=== PATIENT | female | born 1960 | race African-American/Black ===

== ENCOUNTER 2021-12-08 09:43 | Inpatient (IN) | payer OTHER ==
[2021-12-08 09:58] LABS: Glucose,Whole Blood 166 mg/dL (75-99)
--- NOTE | 2021-12-08 10:35 | ED ---
General Adult HPI - General Chief complaint: Neuro Symptoms/Deficit Stated complaint: slurred speech Time Seen by Provider: 12/08/21 09:53 Source: patient, RN notes reviewed, old records reviewed Mode of arrival: ambulatory Limitations: no limitations - History of Present Illness Initial comments: Patient is a 61-year-old female with past medical history remarkable for multiple strokes, uterine cancer currently undergoing radiation therapy, hypertension who presents emergency department for further evaluation at this time. Patient's daughter states that this morning, patient seems somewhat more confused. She states that this is similar to prior strokes which is why she wanted her mother to be evaluated. Patient does have residual deficits from prior strokes, with residual dysarthria. This morning, patient apparently did not know the year the president was, had mild confusion with mildly worsening dysarthria and possible facial droop. She currently is back to her normal baseline, with family at bedside to confirm. Last known well was sometime yesterday afternoon. Patient denies any acute symptoms at this time include chest pain, abdominal pain, nausea, vomiting. She is blood sugar is within normal limits. No acute findings at this time. No trauma. No known blood thinners. - Related Data Home Medications Medication Instructions Recorded Confirmed Atorvastatin Calcium [Lipitor] 40 mg PO HS 11/08/21 12/08/21 Insulin Glargine [Lantus Vial] 17 units SQ HS 11/08/21 12/08/21 Losartan [Cozaar] 50 mg PO BID 11/08/21 12/08/21 Pantoprazole Sodium [Protonix] 40 mg PO DAILY 11/08/21 12/08/21 Megestrol [Megace] 800 mg PO DAILY 12/08/21 12/08/21 Metoprolol Succinate (ER) [Toprol 50 mg PO DAILY 12/08/21 12/08/21 Xl] hydroCHLOROthiazide [Hydrodiuril] 25 mg PO DAILY 12/08/21 12/08/21 Previous Rx's Medication Instructions Recorded Ferrous Sulfate [Iron (65 MG 325 mg PO DAILY #30 tab 11/09/21 Elemental)] Allergies Allergy/AdvReac Type Severity Reaction Status Date / Time No Known Allergies Allergy Verified 12/08/21 12:23 Review of Systems ROS Statement: Those systems with pertinent positive or pertinent negative responses have been documented in the HPI. Review of Systems: CONST: Denies fever EYES: Denies blurry vision ENT: Denies nasal congestion C/V: Denies Chest pain RESP: Denies shortness of breath GI: Denies abdominal pain : Denies dysuria SKIN: Denies rash. MSK: Denies joint pain. NEURO: Denies headache ROS Other: All systems not noted in ROS Statement are negative. Past Medical History Past Medical History: Cancer, Diabetes Mellitus, Hypertension Additional Past Medical History / Comment(s): PER PATIENT'S DTR- CVA AROUND 09/25 21 AND WENT TO [facility], SPEECH APPEARS SLIGHTLY SLURRED, uterine ca History of Any Multi-Drug Resistant Organisms: None Reported Past Surgical History: No Surgical Hx Reported Past Psychological History: No Psychological Hx Reported Smoking Status: Current every day smoker Past Alcohol Use History: None Reported Past Drug Use History: None Reported - Past Family History family Family Medical History: No Reported History General Exam - General Exam Comments Initial Comments: General: Appears in no acute distress. HEAD: Normal with no signs of head trauma. EYES: PERRLA, EOMI, conjunctiva normal, no discharge. ENT: Hearing grossly intact, normal oropharynx. RESPIRATORY: Clear breath sounds bilaterally. No wheezes, rales, or rhonchi. C/V: Regular rate and rhythm. S1 and S2 auscultated, no edema, peripheral pulses 2+ and intact throughout ABD: Abd is soft, nontender, nondistended EXT: Normal range of motion, no obvious deformity SKIN: No rashes or lesions observed on exposed skin. NEURO: Alert and oriented 4. Cranial nerves II through XII are intact. NIH is 0. Patient does have chronic dysarthria from prior strokes which is unchanged. This is verified by family who is at bedside. Confusion she expressed earlier seems to have resolved. Cerebellar function is intact as evident by normal finger to nose testing and [id number] testing. No acute neurological findings. Limitations: no limitations Course Vital Signs 12/08/21 12/08/21 12/08/21 09:46 10:13 11:38 Temperature 97.8 F Pulse Rate 62 62 85 Respiratory 18 18 18 Rate Blood Pressure 144/76 163/89 141/85 O2 Sat by Pulse 100 100 99 Oximetry Medical Decision Making - Medical Decision Making This on the patient's presentation and physical exam, patient was brought here for neurological evaluation over concern for possible stroke. Symptoms she had this morning, including confusion was identical to prior strokes per family. The symptoms seem to have resolved. NIH is currently 0 for new symptoms. Has chronic dysarthria from prior strokes which is unchanged per family. Last known well was yesterday afternoon. I did discuss with the patient's family that we w ill obtain neurology exam, including CT imaging of the brain. Cannot rule out other etiology at this time and therefore we'll also obtain urine studies as well as basic labs. [id number] glucose was within normal limits. There were in agreement this plan. Vital signs are within normal limits and stable. EKG showed no signs of acute ischemia. Laboratory studies remarkable for a mild chronic anemia with a hemoglobin was 7.2. Urinalysis is unremarkable. The remainder the labs are unremarkable. This includes a normal glucose. Chest x- ray showed cardiomegaly. Possible central venous congestion but no symptoms. CT brain showed no acute findings. There are chronic findings. CT angiogram revealed diffuse narrowing of multiple arteries in the brain. No acute findings on imaging except for a small possible 3.5 mm saccular aneurysm projecting inferiorly and posteriorly from the supraclinoid right ICA. Radiology recommends a referral for MRI surveillance. No large vessel occlusion seen.. I discussed the case with on-call neurology, Dr. Brennan, who is in agreement with the patient remaining here. Also discussed the case with Dr. Ruth of neuro intervention he states that the patient can follow-up with him outpatient. Patient will be given an aspirin. I spoke with the cold roller doctor, Dr. Narvaez who accepted the patient.I discussed with the patient's family as well as with the patient and they were in agreement with this plan. - Lab Data Result diagrams: 12/08/21 10:36 12/08/21 10:36 Lab Results 12/08/21 12/08/21 12/08/21 Range/Units 09:57 10:36 10:36 WBC 6.0 (3.8-10.6) k/uL RBC 3.02 L (3.80-5.40) m/uL Hgb 7.2 L (11.4-16.0) gm/dL Hct 24.0 L (34.0-46.0) % MCV 79.5 L D (80.0-100.0) fL MCH 23.8 L (25.0-35.0) pg MCHC 30.0 L (31.0-37.0) g/dL RDW 22.2 H (11.5-15.5) % Plt Count 293 (150-450) k/uL MPV 7.1 Neutrophils % 75 % Lymphocytes % 17 % Monocytes % 3 % Eosinophils % 4 % Basophils % 0 % Neutrophils # 4.5 (1.3-7.7) k/uL Lymphocytes # 1.0 (1.0-4.8) k/uL Monocytes # 0.2 (0-1.0) k/uL Eosinophils # 0.2 (0-0.7) k/uL Basophils # 0.0 (0-0.2) k/uL Hypochromasia Marked Poikilocytosis Moderate Anisocytosis Moderate Microcytosis Moderate PT 9.7 (9.0-12.0) sec INR 0.9 (<1.2) APTT 21.8 L (22.0-30.0) sec Sodium (137-145) mmol/L Potassium (3.5-5.1) mmol/L Chloride (98-107) mmol/L Carbon Dioxide (22-30) mmol/L Anion Gap mmol/L BUN (7-17) mg/dL Creatinine (0.52-1.04) mg/dL Est GFR (CKD-EPI)AfAm (>60 ml/min/1.73 sqM) Est GFR (CKD-EPI)NonAf (>60 ml/min/1.73 sqM) Glucose (74-99) mg/dL POC Glucose (mg/dL) 166 H (75-99) mg/dL POC Glu Clam Grader ID Erik Gibbons Calcium (8.4-10.2) mg/dL Total Bilirubin (0.2-1.3) mg/dL AST (14-36) U/L ALT (4-34) U/L Alkaline Phosphatase (38-126) U/L Total Protein (6.3-8.2) g/dL Albumin (3.5-5.0) g/dL Urine Color Urine Appearance (Clear) Urine pH (5.0-8.0) Ur Specific [place] (1.001-1.035) Urine Protein (Negative) Urine Glucose (UA) (Negative) Urine Ketones (Negative) Urine Blood (Negative) Urine Nitrite (Negative) Urine Bilirubin (Negative) Urine Urobilinogen (<2.0) mg/dL Ur Leukocyte Esterase (Negative) Urine RBC (0-5) /hpf Urine WBC (0-5) /hpf Ur Squamous Epith Cells (0-4) /hpf Urine Mucus (None) /hpf 12/08/21 12/08/21 Range/Units 10:36 10:36 WBC (3.8-10.6) k/uL RBC (3.80-5.40) m/uL Hgb (11.4-16.0) gm/dL Hct (34.0-46.0) % MCV (80.0-100.0) fL MCH (25.0-35.0) pg MCHC (31.0-37.0) g/dL RDW (11.5-15.5) % Plt Count (150-450) k/uL MPV Neutrophils % % Lymphocytes % % Monocytes % % Eosinophils % % Basophils % % Neutrophils # (1.3-7.7) k/uL Lymphocytes # (1.0-4.8) k/uL Monocytes # (0-1.0) k/uL Eosinophils # (0-0.7) k/uL Basophils # (0-0.2) k/uL Hypochromasia Poikilocytosis Anisocytosis Microcytosis PT (9.0-12.0) sec INR (<1.2) APTT (22.0-30.0) sec Sodium 139 (137-145) mmol/L Potassium 4.2 (3.5-5.1) mmol/L Chloride 106 (98-107) mmol/L Carbon Dioxide 24 (22-30) mmol/L Anion Gap 9 mmol/L BUN 16 (7-17) mg/dL Creatinine 1.03 (0.52-1.04) mg/dL Est GFR (CKD-EPI)AfAm 69 (>60 ml/min/1.73 sqM) Est GFR (CKD-EPI)NonAf 60 (>60 ml/min/1.73 sqM) Glucose 145 H (74-99) mg/dL POC Glucose (mg/dL) (75-99) mg/dL POC Glu Clam Grader ID Calcium 8.9 (8.4-10.2) mg/dL Total Bilirubin 0.3 (0.2-1.3) mg/dL AST 24 (14-36) U/L ALT 14 (4-34) U/L Alkaline Phosphatase 76 (38-126) U/L Total Protein 7.0 (6.3-8.2) g/dL Albumin 3.9 (3.5-5.0) g/dL Urine Color Yellow Urine Appearance Clear (Clear) Urine pH 6.5 (5.0-8.0) Ur Specific [place] 1.019 (1.001-1.035) Urine Protein Trace H (Negative) Urine Glucose (UA) Negative (Negative) Urine Ketones Negative (Negative) Urine Blood Trace H (Negative) Urine Nitrite Negative (Negative) Urine Bilirubin Negative (Negative) Urine Urobilinogen <2.0 (<2.0) mg/dL Ur Leukocyte Esterase Negative (Negative) Urine RBC 7 H (0-5) /hpf Urine WBC 2 (0-5) /hpf Ur Squamous Epith Cells <1 (0-4) /hpf Urine Mucus Rare H (None) /hpf - EKG Data -: EKG Interpreted by Me EKG Comments: 12-lead Electrocardiogram Interpretation Note EKG was reviewed and interpreted by myself. 12-lead ECG performed at 0956 is interpreted by me as revealing normal sinus rhythm at a rate of 66 beats per minute. [place] is normal. ID interval is 160 ms, QRS duration is 84 ms, QTc is 415 ms.. There were no ST or T wave abnormalities to suggest myocardial ischemia or injury. R wave progression across the precordium was satisfactory. By my interpretation this EKG is non-diagnostic for acute ischemia. Critical Care Time Critical Care Time: Yes Total Critical Care Time: 35 Critical Care Time: Upon my evaluation, this patient had a high probability of imminent or life- threatening deterioration due to TIA, which required my direct attention, intervention, and personal management. I have personally provided 35 minutes of critical care time exclusive of time spent on separately billable procedures. Time includes review of laboratory data, radiology results, discussion with consultants, and monitoring for potential decompensation. Interventions were performed as documented in my note. Disposition Clinical Impression: TIA (transient ischemic attack) Disposition: ADMITTED IP TO THIS HOSP Condition: Stable Time of Disposition: 12:25
--- NOTE | 2021-12-08 10:56 | XR ---
EXAMINATION TYPE: XR chest 2V DATE OF EXAM: 12/08/2021 COMPARISON: NONE TECHNIQUE: PA and lateral views submitted. HISTORY: Altered mental status FINDINGS: The lungs are clear and there is no pneumothorax, pleural effusion, or focal pneumonia. The heart i s enlarged. Hypertrophic degenerative changes in spine. Subsegmental changes left lung base. Arthropa thy of the shoulders. Hypertrophic change of the spine. Coarsened interstitium. IMPRESSION: 1. Severe cardiomegaly correlate for mild central venous congestion or interstitial pneumonitis.
[2021-12-08 10:59] LABS: Anisocytosis Moderate; Basophils % (A) 0 %; Eosinophils # (A) 0.2 k/uL (0-0.7); Eosinophils % (A) 4 %; HGB 7.2 gm/dL (11.4-16.0); Hypochromasia Marked; Lymphocytes % (A) 17 %; MCH 23.8 pg (25.0-35.0); Mean Platelet Volume 7.1; Microcytosis Moderate; Monocytes # (A) 0.2 k/uL (0-1.0); Monocytes % (A) 3 %; Neutrophils # (A) 4.5 k/uL (1.3-7.7); Neutrophils % (A) 75 %; Platelet Count 293 k/uL (150-450); Poikilocytosis Moderate; RBC 3.02 m/uL (3.80-5.40); RDW 22.2 % (11.5-15.5)
[2021-12-08 11:00] LABS: MCV 79.5 fL (80.0-100.0)
[2021-12-08 11:08] LABS: Appearance,Urine Clear (Clear); Bilirubin,Urine Negative (Negative); Blood,Urine Trace (Negative); Color,Urine Yellow; Glucose,Urine (UA) Negative (Negative); Ketones,Urine Negative (Negative); Leukocyte Esterase,Urine Negative (Negative); Mucus,Urine Rare /hpf; Nitrite,Urine Negative (Negative); PH, Urine 6.5 (5.0-8.0); Protein,Urine Trace (Negative); RBC,Urine 7 /hpf (0-5); Specific Gravity,Urine 1.019 (1.001-1.035); Squamous Epithelial Cell,Urine <1 /hpf (0-4); Urobilinogen,Urine <2.0 mg/dL (<2.0); WBC,Urine 2 /hpf (0-5)
[2021-12-08 11:12] LABS: Albumin 3.9 g/dL (3.5-5.0); Calcium 8.9 mg/dL (8.4-10.2); Potassium 4.2 mmol/L (3.5-5.1); Total Bilirubin 0.3 mg/dL (0.2-1.3)
[2021-12-08 11:13] LABS: INR 0.9 (<1.2); Prothrombin Time 9.7 sec (9.0-12.0)
[2021-12-08] MEDS ORDERED: SODIUM CHLORIDE 0.9% 500 ML 500 ML IV STA (11:14)
[2021-12-08 11:23] LABS: Partial Thromboplastin Time 21.8 sec (22.0-30.0)
--- NOTE | 2021-12-08 11:39 | CT ---
EXAMINATION TYPE: CT brain wo con for TPA DATE OF EXAM: 12/08/2021 HISTORY: Neuro deficit, acute stroke suspected CT DLP: 1192.6 mGycm. Automated Exposure Control for Dose Reduction was Utilized. TECHNIQUE: CT scan of the head is performed without contrast. COMPARISON: CT brain December 28, 2013. FINDINGS: There is no acute intracranial hemorrhage or midline shift identified. Ventricles and sul ci within normal limits in size for patient's age. Septum pellucidum vergae redemonstrated. Old infar ct left frontal lobe with ex vacuo dilatation of the left ventricle axial image 32 now present. Vague low area of low-attenuation right parietal lobe axial image 34 with additional areas of low signal t hroughout the deep and periventricular white matter are noted favoring products of chronic small vess el ischemic change. Calcification along the anterior interhemispheric fissure is identified. The glob es are intact and the visualized sinuses are clear. IMPRESSION: No acute intracranial hemorrhage or midline shift. There is old left frontal lobe infarc t. There is mild to moderate nonspecific white matter changes favored product of chronic small vessel ischemic change. Areas of subacute infarct not entirely excluded.
--- NOTE | 2021-12-08 12:14 | CT ---
EXAMINATION TYPE: CT angio head neck DATE OF EXAM: 12/08/2021 COMPARISON: CT brain 12/08/2021 and 12/28/2013 HISTORY: 61-year-old female weakness, Neuro deficit, acute stroke suspected TECHNIQUE: Contiguous axial scanning of the head and neck performed with IV Contrast, patient injecte d with 65 ml mL of Isovue 370. Coronal and sagittal MIP reconstructions performed. 3-D reconstruction s generated on a dedicated independent workstation. CT DLP: 671 mGycm Automated exposure control for dose reduction was used. FINDINGS: NECK: Conventional arch vessel branching anatomy. Dominant right vertebral artery. Both vertebral arteries are otherwise patent throughout their course . The right common and right internal carotid arteries are widely patent. Left common and left internal carotid arteries are widely patent. HEAD: V4 segment left vertebral artery becomes even more hypoplastic after the PICA takeoff. There is a foc al severe narrowing of the distal portion of left vertebral artery. Basilar artery is patent. Moderate atherosclerotic narrowing at the junction of the P1 and P2 segment posterior cerebral artery . Atherosclerotic changes of the bilateral carotid siphons. Mild to moderate focal atherosclerotic narr owing along the supraclinoid left ICA, thin cut axial image 125. There appears to be a 3.5 mm saccular aneurysm projecting inferiorly and posteriorly from the supracl inoid right ICA, axial image 129 and 130. Hypoplastic A1 segment right anterior cerebral artery. Remainder of the anterior circulation is patent but with mild atherosclerotic irregularity. Dense anterior dural calcifications along the falx. Old deep white matter infarct anterior left front al lobe with secondary ex vacuo enlargement left lateral ventricle. IMPRESSION: NECK: 1. WIDELY PATENT VERTEBRAL AND CAROTID ARTERIES IN THE NECK. 2. INCIDENTAL DOMINANT RIGHT VERTEBRAL ARTERY. HEAD: 3. THE NONDOMINANT LEFT VERTEBRAL ARTERY BECOMES EVEN MORE HYPOPLASTIC AFTER THE PICA TAKEOFF. THERE IS ALSO A FOCAL SEVERE NARROWING OF THE DISTAL PORTION OF THE HYPOPLASTIC LEFT VERTEBRAL ARTERY. 4. MILD ATHEROSCLEROTIC CHANGES AT THE BILATERAL CAROTID SIPHONS. THERE IS [id number] FOCAL REESE ROWING ALONG THE SUPRACLINOID LEFT ICA. 5. MODERATE ATHEROSCLEROTIC NARROWING AT THE P1 AND P2 JUNCTION OF THE LEFT POSTERIOR CEREBRAL ARTERY . 6. SUSPECTED 3.5 MM SACCULAR ANEURYSM PROJECTING INFERIORLY AND POSTERIORLY FROM THE SUPRACLINOID RIG HT ICA. THE PATIENT CAN BE REFERRED FOR MRA SURVEILLANCE. 7. MILD ATHEROSCLEROTIC IRREGULARITY THROUGHOUT THE DISTAL BRANCHES OF THE ANTERIOR CIRCULATION. NO L ARGE VESSEL INTRACRANIAL ARTERIAL OCCLUSION SEEN.
[2021-12-08] MEDS ORDERED: ASPIRIN 325 MG TAB PO STA (12:36)
--- NOTE | 2021-12-08 17:23 | P.HPIM ---
History of Present Illness H&P Date: 12/08/21 Chief Complaint: Dysarthria Patient is a 61-year-old -[place] female with past medical history remarkable for multiple strokes with residual dysarthria, recently diagnosed uterine cancer currently undergoing radiation therapy, hypertension who presents emergency department for further evaluation at this time. Patient's daughter states that this morning, patient seems somewhat more confused. She states that this is similar to prior strokes which is why she wanted her mother to be evaluated. Patient does have residual deficits from prior strokes, with residual dysarthria. This morning, patient apparently did not know the year the president was, had mild confusion with mildly worsening dysarthria and possible facial droop. She currently is back to her normal baseline, with family at bedside to confirm. Last known well was sometime yesterday afternoon. Patient denies any acute symptoms at this time include chest pain, shortness of breath, cough, fever abdominal pain, nausea, vomiting. She is blood sugar is within normal limits. No recent travel or sick contacts. Review of Systems All 14 review of systems evaluated and all negative except for above. Past Medical History Past Medical History: Cancer, Diabetes Mellitus, Hypertension Additional Past Medical History / Comment(s): PER PATIENT'S DTR- CVA AROUND 09/2021 AND WENT TO [facility], SPEECH APPEARS SLIGHTLY SLURRED, uterine ca History of Any Multi-Drug Resistant Organisms: None Reported Past Surgical History: No Surgical Hx Reported Past Psychological History: No Psychological Hx Reported Smoking Status: Current every day smoker Past Alcohol Use History: None Reported Past Drug Use History: None Reported - Past Family History family Family Medical History: No Reported History Medications and Allergies Home Medications Medication Instructions Recorded Confirmed Type Atorvastatin Calcium [Lipitor] 40 mg PO HS 11/08/21 12/08/21 History Insulin Glargine [Lantus Vial] 17 units SQ HS 11/08/21 12/08/21 History Losartan [Cozaar] 50 mg PO BID 11/08/21 12/08/21 History Pantoprazole Sodium [Protonix] 40 mg PO DAILY 11/08/21 12/08/21 History Ferrous Sulfate [Iron (65 MG 325 mg PO DAILY #30 tab 11/09/21 12/08/21 Rx Elemental)] Megestrol [Megace] 800 mg PO DAILY 12/08/21 12/08/21 History Metoprolol Succinate (ER) [Toprol 50 mg PO DAILY 12/08/21 12/08/21 History Xl] hydroCHLOROthiazide [Hydrodiuril] 25 mg PO DAILY 12/08/21 12/08/21 History Allergies Allergy/AdvReac Type Severity Reaction Status Date / Time No Known Allergies Allergy Verified 12/08/21 12:23 Physical Exam Vitals: Vital Signs Temp Pulse Resp BP Pulse Ox 12/08/21 16:18 72 18 145/73 99 12/08/21 14:00 73 18 141/63 100 12/08/21 12:00 72 18 150/92 99 12/08/21 11:38 85 18 141/85 99 12/08/21 10:13 62 18 163/89 100 12/08/21 09:46 97.8 F 62 18 144/76 100 Intake and Output 12/08/21 12/08/21 12/08/21 06:59 14:59 22:59 Other: Weight 91.172 kg General: non toxic, no distress, appears at stated age. Obese Derm: warm, dry Head: atraumatic, normocephalic, symmetric Eyes: EOMI, no lid lag, anicteric sclera Mouth: no lip lesion, mucus membranes moist Cardiovascular: S1S2 reg, no murmur, positive posterior tibial pulse bilateral, Lungs: CTA bilateral, no rhonchi, no rales , no accessory muscle use Abdominal: soft, nontender to palpation, no guarding, no appreciable organomegaly Ext: no gross muscle atrophy, no edema, no contractures Neuro: Mild dysarthria. CN II-XI grossly intact, no focal neuro deficits Psych: Alert, oriented, appropriate affect Results CBC & Chem 7: 12/08/21 10:36 12/08/21 10:36 Labs: Abnormal Lab Results - Last 24 Hours (Table) 12/08/21 12/08/21 12/08/21 Range/Units 09:57 10:36 10:36 RBC 3.02 L (3.80-5.40) m/uL Hgb 7.2 L (11.4-16.0) gm/dL Hct 24.0 L (34.0-46.0) % MCV 79.5 L D (80.0-100.0) fL MCH 23.8 L (25.0-35.0) pg MCHC 30.0 L (31.0-37.0) g/dL RDW 22.2 H (11.5-15.5) % APTT 21.8 L (22.0-30.0) sec Glucose (74-99) mg/dL POC Glucose (mg/dL) 166 H (75-99) mg/dL Urine Protein (Negative) Urine Blood (Negative) Urine RBC (0-5) /hpf Urine Mucus (None) /hpf 12/08/21 12/08/21 Range/Units 10:36 10:36 RBC (3.80-5.40) m/uL Hgb (11.4-16.0) gm/dL Hct (34.0-46.0) % MCV (80.0-100.0) fL MCH (25.0-35.0) pg MCHC (31.0-37.0) g/dL RDW (11.5-15.5) % APTT (22.0-30.0) sec Glucose 145 H (74-99) mg/dL POC Glucose (mg/dL) (75-99) mg/dL Urine Protein Trace H (Negative) Urine Blood Trace H (Negative) Urine RBC 7 H (0-5) /hpf Urine Mucus Rare H (None) /hpf Assessment and Plan Assessment: Assessment and plan: #Transient dysarthria with confusion -Symptoms resolved prior to arrival to ER -Reviewed CT of the head and neck -Resume aspirin and high-dose statins -Neurology consulted -EKG normal sinus rhythm -Check 2-D echo #Uterine cancer -The patient's daughter stated that she was seen at [facility] and her mom was not a candidate for hysterectomy -She is currently receiving radiation therapy #Chronic anemia secondary to uterine cancer -The patient's daughter stated that the patient still have intermittent episodes of vaginal bleed. #Hypertension -Controlled -Resume losartan and metoprolol #Type 2 diabetes mellitus -Check A1c -Resume Levemir -Diabetic diet is light scale insulin #Obesity BMI 34 #DVT prophylaxis with subcutaneous Lovenox
--- NOTE | 2021-12-08 17:56 | P.CNNES ---
History of Present Illness Consult date: 12/08/21 Requesting physician: Arturo Alvarado Reason for Consult: TIA History of Present Illness: Patient is a 61-year-old female with history of hypertension, diabetes, tobacco use, previous strokes, who is currently getting radiation therapy for Uterine cancer, has received 09/20 and radiation so far. Patient came to the hospital today at 9:43 AM because she woke up this morning at 8 AM and was "talking funny". Patient states that she went to bed 8 PM last it and was in usual state of health. Patient denies any mental confusion, facial droopiness, although it was mentioned to the ED staff it appears. Patient had no trouble with walking. Patient denies any numbness tingling, focal weakness or any headache. Patient states her speech is still not back to baseline yet. Her last known well was 8 PM last night. Vital signs on arrival blood pressure 144/76, pulse is 62, temperature 97.8. Blood tests shows normal WBC hemoglobin 7.2, platelets 293. MCV is low 79.5. PT/PTT normal, Chem-[address] head showed no acute intracranial hemorrhage or midline shift. There is old left frontal lobe infarct. There is mild to moderate nonspecific white matter changes favored product of chronic small vessel ischemic change. Areas of subacute infarct not entirely excluded. CTA of the neck revealed widely patent vertebral and carotid arteries in the neck. Dominant right vertebral artery. CTA of the head showed no dominant left vertebral artery becomes even more hypoplastic after the pica takeoff. There is also focal severe narrowing of the distal portion of the hypoplastic left vertebral artery. Mild atherosclerotic changes at the bilateral carotid siphon. There is mild to moderate focal narrowing along the supraclinoid left ICA. Moderate atherosclerotic narrowing at the P1 and P2 junction of the left posterior cerebral artery. Suspected 3.5 mm saccular aneurysm projecting inferiorly and posteriorly from the supraclinoid right ICA. The patient can be referred for MRA surveillance. Mild atherosclerotic irregularity throughout the distal branches of the anterior circulation. No large vessel intracranial arterial occlusion seen. Patient was not a candidate for TPA, as her last known well was > 4.5 hours, and her NIH stroke scale was reported at 0. ED staff discussed case with Dr. Ruth regarding Cerebral aneurysm, who recommended no intervention at this time, follow-up in his office. EKG shows sinus rhythm. Patient takes insulin, losartan, Protonix, Lipitor 40 mg, iron, metoprolol 50 mg daily, HCTZ and Megace 800 mg daily. Patient has smoked 1/2 pack per day for 40 years, states quit 2 days ago. She has quit drinking alcohol 15 years ago. Denies any drug use. She has diabetes for 30 years. Also has hypertension and hyperlipidemia. Patient had a previous MRI of the brain on 12/31/2013, which was positive for acute ischemic stroke involving the left tam radiata and centrum semiovale on the left. I personally reviewed that MRI and agree with the findings. I spoke to patient's daughter on the phone, who provided additional history. Apparently patient had residual speech deficit after her stroke in 2013. Patient was on aspirin regimen after the stroke. Patient had a second stroke in August 2021 for which she was admitted to [facility]. Her symptoms consisted of facial droop, confusion, did not know where she was at. Patient was placed on aspirin and Plavix at that time. She had no residual deficits on the second stroke. Patient subsequently developing genitourinary bleeding which would not stop. She was admitted in [place] to [facility], from mid October to November and was diagnosed with uterine cancer stage II. Patient is supposed to have 16 external radiation and 3 internal radiation. So far she has received 3/16 external radiations. Patient's aspirin and Plavix were discontinued because of persistent bleed. Patient's daughter states that this morning her brother called her that mom was not talking right, and her speech was slurred and she was "out of it. She felt it was 1959 and Mr. Larios is the president. She could not name all her children. She was still able to walk. This prompted them to bring her to the hospital. Review of Systems Patient denies headache. All other 14 points of review of systems reviewed and pertinent positives mentioned in HPI. No fever or chills. Past Medical History Past Medical History: Cancer, Diabetes Mellitus, Hypertension Additional Past Medical History / Comment(s): PER PATIENT'S DTR- CVA AROUND 09/2021 AND WENT TO [facility], SPEECH APPEARS SLIGHTLY SLURRED, uterine ca History of Any Multi-Drug Resistant Organisms: None Reported Past Surgical History: No Surgical Hx Reported Past Psychological History: No Psychological Hx Reported Smoking Status: Current every day smoker Past Alcohol Use History: None Reported Past Drug Use History: None Reported - Past Family History family Family Medical History: No Reported History Medications and Allergies Home Medications Medication Instructions Recorded Confirmed Type Atorvastatin Calcium [Lipitor] 40 mg PO HS 11/08/21 12/08/21 History Insulin Glargine [Lantus Vial] 17 units SQ HS 11/08/21 12/08/21 History Losartan [Cozaar] 50 mg PO BID 11/08/21 12/08/21 History Pantoprazole Sodium [Protonix] 40 mg PO DAILY 11/08/21 12/08/21 History Ferrous Sulfate [Iron (65 MG 325 mg PO DAILY #30 tab 11/09/21 12/08/21 Rx Elemental)] Megestrol [Megace] 800 mg PO DAILY 12/08/21 12/08/21 History Metoprolol Succinate (ER) [Toprol 50 mg PO DAILY 12/08/21 12/08/21 History Xl] hydroCHLOROthiazide [Hydrodiuril] 25 mg PO DAILY 12/08/21 12/08/21 History Allergies Allergy/AdvReac Type Severity Reaction Status Date / Time No Known Allergies Allergy Verified 12/08/21 12:23 Physical Examination - Vital Signs Vital Signs: Vital Signs Temp Pulse Resp BP Pulse Ox 12/08/21 11:38 85 18 141/85 99 12/08/21 10:13 62 18 163/89 100 12/08/21 09:46 97.8 F 62 18 144/76 100 Intake and Output 12/07/21 12/08/21 12/08/21 22:59 06:59 14:59 Other: Weight 91.172 kg Patient is a middle aged female, in no acute distress. Patient is alert awake oriented to time place and person. Patient knows it is 12/07/2021 and that she is in hospital, does not know the current city or the state. She knows her date of . Speech is mildly dysarthric. Patient can repeat very well. She was able to name simple objects like "ear, pen, eyeglasses", but was having difficulty naming slightly more complex objects like knuckles and earlobe, the later she mentioned as "eardrum". Attention, concentration intact and fund of knowledge is limited. On cranial examination, pupils are equal, round and reacting to light, visual steve are full on confrontation, with no neglect. Her extraocular muscles are intact with no nystagmus. Face is symmetric, tongue protrudes to the midline. Palatal elevation and sensation normal, hearing is slightly decreased and shoulder shrug normal, facial sensation normal. Shoulder shrug normal. On muscle strength testing, there is no pronator drift and the strength is normal in arms and legs distally and proximally. Deep tendon reflexes are symmetric and plantars downgoing. Sensory to touch is equal with no neglect. Cerebellar function showed no ataxia for [id number], or [id number] testing. Tone and bulk of muscles normal. Gait deferred. On general examination, there is no carotid bruit or murmur, S1-S2 audible. Abdomen is soft nontender. No organomegaly, bowel sounds present. Chest is clear. Peripheral pulses are present. No edema. Results - Laboratory Findings CBC and BMP: 12/08/21 10:36 12/08/21 10:36 Abnormal Lab Findings: Abnormal Labs 12/08/21 12/08/21 12/08/21 09:57 10:36 10:36 RBC 3.02 L Hgb 7.2 L Hct 24.0 L MCV 79.5 L D MCH 23.8 L MCHC 30.0 L RDW 22.2 H APTT 21.8 L Glucose POC Glucose (mg/dL) 166 H Urine Protein Urine Blood Urine RBC Urine Mucus 12/08/21 12/08/21 10:36 10:36 RBC Hgb Hct MCV MCH MCHC RDW APTT Glucose 145 H POC Glucose (mg/dL) Urine Protein Trace H Urine Blood Trace H Urine RBC 7 H Urine Mucus Rare H Assessment and Plan Assessment: * Probable acute ischemic stroke manifesting with dysarthric speech and perhaps mild expressive aphasia. Patient has history of strokes in 2013, with some residual speech deficits. Also had a minor stroke in August 2021, with no further residual deficits. * Uterine cancer, undergoing radiation therapy * Asymptomatic saccular cerebral aneurysm, 3.5 mm projecting inferiorly and posteriorly from the supraclinoid right ICA. * Hypertension * Diabetes * Hyperlipidemia * Tobacco use * Previous history of strokes. Plan: * MRI brain evaluate for an acute stroke * 2-D echo with bubble study rule out PFO * Fasting a.m. lipid panel, hemoglobin A1c * Telemetry monitoring * Permissive hypertension, avoid hypotension. * Patient had developed bleed from DAP after her recent stroke in August 2021. Her aspirin and Plavix were discontinued at that time. Now with this recurrent stroke symptoms, we will place her on single antiplatelet agent Plavix 75 mg daily. As she has received aspirin 325 mg today, we will start Plavix from tomorrow. Discussed with patient's daughter, who agreed. * Regarding asymptomatic right ICA cerebral aneurysm, would recommend patient follow up with Dr. Ruth in his office as outpatient. * For DVT prophylaxis, recommend SCDs. * Recommend complete tobacco cessation. * Neurology will follow. Thank you for the consult.
[2021-12-08 18:43] LABS: Glucose,Whole Blood 125 mg/dL (75-99)
[2021-12-08] MEDS: INSULIN ASPART (NovoLOG) 100 UNIT/ML VIAL SQ SCH ×2 (18:45→21:10)
[2021-12-08 20:51] LABS: Glucose,Whole Blood 171 mg/dL (75-99)
[2021-12-08] MEDS: ATORVASTATIN 40 MG TAB PO SCH (21:09)
[2021-12-08] MEDS: LOSARTAN 50 MG TAB PO SCH (21:09)
[2021-12-08] MEDS: INSULIN DETEMIR (LEVEMIR) 100 UNIT/ML SYR SQ SCH (22:24)
[2021-12-09 07:30] LABS: Glucose,Whole Blood 112 mg/dL (75-99)
[2021-12-09] MEDS: METOPROLOL SUCCINATE (ER) 50 MG TAB.ER.24H PO SCH (08:13)
[2021-12-09] MEDS: PANTOPRAZOLE 40 MG TABLET PO SCH (08:13)
[2021-12-09] MEDS: ENOXAPARIN 40 MG/0.4 ML SYRINGE SQ SCH (08:13)
[2021-12-09] MEDS: LOSARTAN 50 MG TAB PO SCH ×2 (08:13→19:59)
[2021-12-09] MEDS: MEGESTROL 400 MG/10 ML CUP PO SCH (08:13)
[2021-12-09] MEDS ORDERED: FERROUS SULFATE 325 MG TAB PO SCH (09:00)
[2021-12-09] MEDS: INSULIN ASPART (NovoLOG) 100 UNIT/ML VIAL SQ SCH ×4 (09:58→19:58)
--- NOTE | 2021-12-09 11:02 | MR ---
EXAMINATION TYPE: MR brain wo/w con DATE OF EXAM: 12/09/2021 COMPARISON: CT brain from yesterday HISTORY: Stroke, TIA, Recent Dx of cancer getting radiation TECHNIQUE: Multiplanar, multisequence images of the brain and brainstem is performed without and with IV contras t, utilizing 9 mL intravenous Gadavist . FINDINGS: Diffusion-weighted images show approximately 8 small foci of increased signal on diffusion- weighted images which diminished signal on ADC mapping scattered throughout the deep right frontal an d parietal lobes. There are approximately 3 smaller subtle foci in the deep left parietal lobe. There is background mild ventricular and sulcal prominence. There are prominent areas of low attenuat ion in the deep and periventricular white matter. There is some left-sided encephalomalacia with subt le left-sided midline shift and extra-axial dilatation of the left ventricular system. Septum pelluci dum vergae redemonstrated. Midline structures demonstrate normal morphology. The craniocervical junction appears within normal limits. Post contrast images demonstrate no abnormal enhancement. The dural venous sinuses appear pa tent. The visualized sinuses are clear and the globes are intact. IMPRESSION: 1. Multiple small lacunar infarcts involving the right frontal and parietal levels with some involvem ent deep left parietal level. 2. Background mild diffuse cerebral atrophy and moderate to advanced chronic small vessel ischemic ch nima along with slightly more prominent old left-sided encephalomalacia.
[2021-12-09 12:06] LABS: Glucose,Whole Blood 122 mg/dL (75-99)
[2021-12-09 12:10] LABS: African American GFR (CKD) 69.7 (60.0-200.0); BUN/Creat Ratio 11.08 Ratio (12.00-20.00); Blood Urea Nitrogen 11.3 mg/dL (9.0-27.0); Calcium 8.8 mg/dL (8.7-10.3); Carbon Dioxide 19.1 mmol/L (20.0-27.5); Chloride 106 mmol/L (96-109); Chol/HDL Ratio 4.16 Ratio; Glucose 106 mg/dL (70-110); LDL Cholesterol,Calculated 61.4 mg/dL (0.0-131.0); Non-African American GFR(CKD) 60.2 (60.0-200.0); Potassium 4.2 mmol/L (3.5-5.5); Sodium 137 mmol/L (135-145)
[2021-12-09] MEDS: CLOPIDOGREL 75 MG TAB PO SCH (13:15)
[2021-12-09 14:04] LABS: Basophils # (A) 0.02 X 10*3/uL (0.00-0.10); Basophils % (A) 0.4 %; Eosinophils # (A) 0.28 X 10*3/uL (0.04-0.35); Eosinophils % (A) 5.4 %; HCT 23.9 % (37.2-46.3); HGB 6.9 g/dL (12.0-15.0); Immature Grans, Automated 0.6 %; Lymphocytes # (A) 0.59 X 10*3/uL (0.90-5.00); Lymphocytes % (A) 11.3 %; MCH 23.2 pg (27.0-32.0); MCHC 28.9 g/dL (32.0-37.0); MCV 80.5 fL (80.0-97.0); Mean Platelet Volume 10.8 fL (9.5-12.2); Monocytes # (A) 0.24 X 10*3/uL (0.20-1.00); Monocytes % (A) 4.6 %; NRBC Per 100 WBC 0 /100 WBCS (0.0-0.0); Neutrophils # (A) 4.07 X 10*3/uL (1.80-7.70); Neutrophils % (A) 77.7 %; Platelet Count 293 X 10*3/uL (140-440); RBC 2.97 X 10*6/uL (4.10-5.20); RDW 24.8 % (11.5-14.5); WBC 5.23 X 10*3/uL (4.50-10.00)
--- NOTE | 2021-12-09 14:17 | P.PN ---
Subjective Progress Note Date: 12/09/21 Chief Complaint: Dysarthria Patient is a 61-year-old -[place] female with past medical history remarkable for multiple strokes with residual dysarthria, recently diagnosed u terine cancer currently undergoing radiation therapy, hypertension who presents emergency department for further evaluation at this time. Patient's daughter states that this morning, patient seems somewhat more confused. She states that this is similar to prior strokes which is why she wanted her mother to be evaluated. Patient does have residual deficits from prior strokes, with residual dysarthria. This morning, patient apparently did not know the year the president was, had mild confusion with mildly worsening dysarthria and possible facial droop. She currently is back to her normal baseline, with family at bedside to confirm. Last known well was sometime yesterday afternoon. Patient denies any acute symptoms at this time include chest pain, shortness of breath, cough, fever abdominal pain, nausea, vomiting. She is blood sugar is within normal limits. No recent travel or sick contacts. Interval history: She was examined at bedside. She denies any chest pain or shortness of breath. MRI showed multiple lacunar infarcts. Discussed with neurology and patient was started on Plavix plus aspirin. Physical examination: General: non toxic, no distress, appears at stated age. Obese Derm: warm, dry Head: atraumatic, normocephalic, symmetric Eyes: EOMI, no lid lag, anicteric sclera Mouth: no lip lesion, mucus membranes moist Cardiovascular: S1S2 reg, no murmur, positive posterior tibial pulse bilateral, Lungs: CTA bilateral, no rhonchi, no rales , no accessory muscle use Abdominal: soft, nontender to palpation, no guarding, no appreciable organomegaly Ext: no gross muscle atrophy, no edema, no contractures Neuro: Mild dysarthria. CN II-XI grossly intact, no focal neuro deficits Psych: Alert, oriented, appropriate affect Assessment and plan: #Recurrent acute CVA multiple lacunar infarcts -Plavix added to aspirin -Symptoms resolved prior to arrival to ER -Reviewed CT of the head and neck -Resume high-dose statins -Neurology consulted -EKG normal sinus rhythm -Check 2-D echo--pending -Cardiology consulted for possible loop recorder #Uterine cancer -The patient's daughter stated that she was seen at [facility] and her mom was not a candidate for hysterectomy -She is currently receiving radiation therapy #Acute on Chronic microcytic iron deficienc anemia secondary to postmenopausal bleeding due to uterine cancer -The patient's daughter stated that the patient still have intermittent episodes of vaginal bleed. -Consult oncology service -Transfuse 1 unit of packed RBCs #Hypertension -Controlled -Resume losartan and metoprolol #Type 2 diabetes mellitus -A1c is 6.1 -Resume Levemir -Diabetic diet is light scale insulin #Obesity BMI 34 #DVT prophylaxis with subcutaneous Lovenox Objective - Vital Signs Vital signs: Vital Signs Temp 98.2 F 12/09/21 07:05 Pulse 69 12/09/21 07:05 Resp 18 12/09/21 08:25 BP 148/78 12/09/21 07:05 Pulse Ox 100 12/09/21 07:05 FiO2 Intake & Output 12/08/21 12/09/21 12/09/21 18:59 06:59 18:59 Weight 91.172 kg 91.172 kg Other: Voiding Method Toilet # Voids 1 - Labs CBC & Chem 7: 12/09/21 07:43 12/09/21 07:43 Labs: Abnormal Lab Results - Last 24 Hours (Table) 12/08/21 12/08/21 12/08/21 Range/Units 10:36 18:41 20:50 RBC (4.10-5.20) X 10*6/uL Hgb (12.0-15.0) g/dL Hct (37.2-46.3) % MCH (27.0-32.0) pg MCHC (32.0-37.0) g/dL RDW (11.5-14.5) % Plt Count Comment Lymphocytes # (0.90-5.00) X 10*3/uL Carbon Dioxide (20.0-27.5) mmol/L BUN/Creatinine Ratio (12.00-20.00) Ratio POC Glucose (mg/dL) 125 H 171 H (75-99) mg/dL Hemoglobin A1c 6.1 H (0.0-6.0) % HDL Cholesterol (40.00-60.00) mg/dL 12/09/21 12/09/21 12/09/21 Range/Units 07:29 07:43 07:43 RBC 2.97 L (4.10-5.20) X 10*6/uL Hgb 6.9 L* (12.0-15.0) g/dL Hct 23.9 L (37.2-46.3) % MCH 23.2 L (27.0-32.0) pg MCHC 28.9 L (32.0-37.0) g/dL RDW 24.8 H (11.5-14.5) % Plt Count Comment A Lymphocytes # 0.59 L (0.90-5.00) X 10*3/uL Carbon Dioxide 19.1 L (20.0-27.5) mmol/L BUN/Creatinine Ratio 11.08 L (12.00-20.00) Ratio POC Glucose (mg/dL) 112 H (75-99) mg/dL Hemoglobin A1c (0.0-6.0) % HDL Cholesterol 28.60 L (40.00-60.00) mg/dL 12/09/21 Range/Units 12:04 RBC (4.10-5.20) X 10*6/uL Hgb (12.0-15.0) g/dL Hct (37.2-46.3) % MCH (27.0-32.0) pg MCHC (32.0-37.0) g/dL RDW (11.5-14.5) % Plt Count Comment Lymphocytes # (0.90-5.00) X 10*3/uL Carbon Dioxide (20.0-27.5) mmol/L BUN/Creatinine Ratio (12.00-20.00) Ratio POC Glucose (mg/dL) 122 H (75-99) mg/dL Hemoglobin A1c (0.0-6.0) % HDL Cholesterol (40.00-60.00) mg/dL
--- NOTE | 2021-12-09 16:40 | P.CONS ---
History of Present Illness - Reason for Consult Consult date: 12/09/21 Endometrial Cancer Requesting physician: Tremaine Narvaez - Chief Complaint Post menopausal bleeding - History of Present Illness Mrs. Reis is a pleasant female presenting with confusion. She has a known history of CVA/TIAs and recent (11/09) diagnosis of endometrial FIGO2 Cancer. She has not been seen by our group and is apparently undergoing radiaiton therapy and receiving Megace (although anorexia dosing). She presents with increased confusion today. Review of Systems All systems: negative Constitutional: Reports as per HPI Past Medical History Past Medical History: Cancer, Diabetes Mellitus, Hypertension Additional Past Medical History / Comment(s): PER PATIENT'S DTR- CVA AROUND 09/2021 AND WENT TO [facility], SPEECH APPEARS SLIGHTLY SLURRED, uterine ca History of Any Multi-Drug Resistant Organisms: None Reported Past Surgical History: No Surgical Hx Reported Past Psychological History: No Psychological Hx Reported Smoking Status: Current every day smoker Past Alcohol Use History: None Reported Past Drug Use History: None Reported - Past Family History family Family Medical History: No Reported History Medications and Allergies Home Medications Medication Instructions Recorded Confirmed Type Atorvastatin Calcium [Lipitor] 40 mg PO HS 11/08/21 12/08/21 History Insulin Glargine [Lantus Vial] 17 units SQ HS 11/08/21 12/08/21 History Losartan [Cozaar] 50 mg PO BID 11/08/21 12/08/21 History Pantoprazole Sodium [Protonix] 40 mg PO DAILY 11/08/21 12/08/21 History Ferrous Sulfate [Iron (65 MG 325 mg PO DAILY #30 tab 11/09/21 12/08/21 Rx Elemental)] Megestrol [Megace] 800 mg PO DAILY 12/08/21 12/08/21 History Metoprolol Succinate (ER) [Toprol 50 mg PO DAILY 12/08/21 12/08/21 History Xl] hydroCHLOROthiazide [Hydrodiuril] 25 mg PO DAILY 12/08/21 12/08/21 History Allergies Allergy/AdvReac Type Severity Reaction Status Date / Time No Known Allergies Allergy Verified 12/08/21 12:23 Physical Exam Vitals: Vital Signs Temp Pulse Pulse Resp BP BP BP 12/09/21 14:57 98.9 F 70 15 129/85 12/09/21 08:25 18 12/09/21 07:05 98.2 F 69 17 148/78 12/09/21 02:33 97.1 F L 65 18 144/76 12/08/21 22:59 98.3 F 68 17 156/85 12/08/21 22:01 98.6 F 75 18 147/76 12/08/21 18:42 87 18 137/71 Pulse Ox 12/09/21 14:57 100 12/09/21 08:25 12/09/21 07:05 100 12/09/21 02:33 95 12/08/21 22:59 99 12/08/21 22:01 99 12/08/21 18:42 99 Intake and Output 12/09/21 12/09/21 12/09/21 06:59 14:59 22:59 Other: Voiding Method Toilet # Voids 1 1 - Constitutional General appearance: cooperative, no acute distress - EENT Eyes: EOMI, PERRLA ENT: NA/AT, normal oropharynx - Neck Neck: normal ROM - Respiratory Respiratory: bilateral: CTA - Cardiovascular Rhythm: regularly irregular - Gastrointestinal General gastrointestinal: soft, tenderness - Integumentary Integumentary: pale - Neurologic Neurologic: CNII-XII intact - Musculoskeletal Musculoskeletal: generalized weakness Results CBC & Chem 7: 12/09/21 07:43 12/09/21 07:43 Labs: Abnormal Lab Results - Last 24 Hours (Table) 12/08/21 12/08/21 12/08/21 Range/Units 10:36 18:41 20:50 RBC (4.10-5.20) X 10*6/uL Hgb (12.0-15.0) g/dL Hct (37.2-46.3) % MCH (27.0-32.0) pg MCHC (32.0-37.0) g/dL RDW (11.5-14.5) % Plt Count Comment Lymphocytes # (0.90-5.00) X 10*3/uL Carbon Dioxide (20.0-27.5) mmol/L BUN/Creatinine Ratio (12.00-20.00) Ratio POC Glucose (mg/dL) 125 H 171 H (75-99) mg/dL Hemoglobin A1c 6.1 H (0.0-6.0) % HDL Cholesterol (40.00-60.00) mg/dL Crossmatch 12/09/21 12/09/21 12/09/21 Range/Units 07:29 07:43 07:43 RBC 2.97 L (4.10-5.20) X 10*6/uL Hgb 6.9 L* (12.0-15.0) g/dL Hct 23.9 L (37.2-46.3) % MCH 23.2 L (27.0-32.0) pg MCHC 28.9 L (32.0-37.0) g/dL RDW 24.8 H (11.5-14.5) % Plt Count Comment A Lymphocytes # 0.59 L (0.90-5.00) X 10*3/uL Carbon Dioxide 19.1 L (20.0-27.5) mmol/L BUN/Creatinine Ratio 11.08 L (12.00-20.00) Ratio POC Glucose (mg/dL) 112 H (75-99) mg/dL Hemoglobin A1c (0.0-6.0) % HDL Cholesterol 28.60 L (40.00-60.00) mg/dL Crossmatch 12/09/21 12/09/21 Range/Units 12:04 14:32 RBC (4.10-5.20) X 10*6/uL Hgb (12.0-15.0) g/dL Hct (37.2-46.3) % MCH (27.0-32.0) pg MCHC (32.0-37.0) g/dL RDW (11.5-14.5) % Plt Count Comment Lymphocytes # (0.90-5.00) X 10*3/uL Carbon Dioxide (20.0-27.5) mmol/L BUN/Creatinine Ratio (12.00-20.00) Ratio POC Glucose (mg/dL) 122 H (75-99) mg/dL Hemoglobin A1c (0.0-6.0) % HDL Cholesterol (40.00-60.00) mg/dL Crossmatch See Detail Assessment and Plan Plan: Endometrial Cancer: -Currently receiving radiaiton therapy COnfusion: - Neurology following - MRI with scattered evidence of CVA Normocytic Hypochrommic anemia: - Vaginal Blood loss Iron defi - Transfuse less than 7 - Parental Iron x3 Dr. Barahona: I have completed the full history and physical and developed the above impression and plan, agree with dictation dictated as a ascribe
[2021-12-09 17:30] LABS: Glucose,Whole Blood 213 mg/dL (75-99)
--- NOTE | 2021-12-09 18:14 | CA ---
Transthoracic Echo Report Name: Velma Desai Age: 61 Gender: F : 1960 Exam Date: 12/08/2021 15:57 Exam Location: [place] [facility] Ht (in): 64 Wt (lb): 201 Ordering Physician: Peggy Brennan MD Attending/Referring Phys: Electromechanical Assembly Technician Amita Mosley RDCS Procedure CPT: Indications: CVA Cardiac Hx: Technical Quality: Good Contrast 1: Total Dose (mL): Contrast 2: Total Dose (mL): MEASUREMENTS (Male / Female) Normal Values 2D ECHO LV Diastolic Diameter PLAX 5.1 cm 4.2 - 5.9 / 3.9 - 5.3 cm LV Systolic Diameter PLAX 3.7 cm IVS Diastolic Thickness 1.4 cm 0.6 - 1.0 / 0.6 - 0.9 cm LVPW Diastolic Thickness 1.5 cm 0.6 - 1.0 / 0.6 - 0.9 cm LV Relative Wall Thickness 0.6 RV Internal Dim ED PLAX 3.3 cm LA Systolic Diameter LX 4.0 cm 3.0 - 4.0 / 2.7 - 3.8 cm LA Volume 57.4 cm??? 18 - 58 / 22 - 52 cm??? M-MODE Aortic Root Diameter MM 3.1 cm MV E Point Septal Separation 1.1 cm AV Cusp Separation MM 2.3 cm DOPPLER AV Peak Velocity 191.9 cm/s AV Peak Gradient 14.7 mmHg AV Mean Velocity 128.8 cm/s AV Mean Gradient 7.7 mmHg AV Velocity Time Integral 38.6 cm LVOT Peak Velocity 97.0 cm/s LVOT Peak Gradient 3.8 mmHg MV Area PHT 4.0 cm??? Mitral E Point Velocity 109.7 cm/s Mitral A Point Velocity 120.8 cm/s Mitral E to A Ratio 0.9 MV Deceleration Time 187.6 ms MV E' Velocity 5.2 cm/s Mitral E to MV E' Ratio 21.1 TR Peak Velocity 265.5 cm/s TR Peak Gradient 28.2 mmHg Right Ventricular Systolic Press 31.8 mmHg FINDINGS Left Ventricle Left ventricular ejection fraction is estimated at 55-60 %. Left ventricular cavity size normal. Moderate concentric left ventricular hypertrophy Right Ventricle Mild right ventricular dilatation. Right Atrium Normal right atrial size. Left Atrium Mildly increased left atrial diameter. Mildly increased left atrial volume. Mildly increased left atrial area. No evidence for an atrial septal defect. Negataive saline bubbles study Mitral Valve Mitral annular calcification. Mild mitral regurgitation. Aortic Valve Focal thickening of the aortic valve cusps. No aortic regurgitation. Tricuspid Valve Mild tricuspid regurgitation. Pulmonic Valve Trace pulmonic regurgitation. Pericardium Normal pericardium. Aorta Normal size aortic root and proximal ascending aorta. CONCLUSIONS Normal left ventricular ejection fraction 55-60% Moderate LVH RVSP 31 Negative bubble study Mild mitral regurgitation Mild tricuspid regurgitation No pericardial effusion. Previewed by: Dr. Dalton Solorio DO (Electronically Signed) Final Date: 09 December 2021 18:13
[2021-12-09 19:51] LABS: Glucose,Whole Blood 262 mg/dL (75-99)
[2021-12-09] MEDS: INSULIN DETEMIR (LEVEMIR) 100 UNIT/ML SYR SQ SCH (19:57)
[2021-12-09] MEDS: ATORVASTATIN 40 MG TAB PO SCH (19:58)
[2021-12-10 07:14] LABS: Glucose,Whole Blood 198 mg/dL (75-99)
[2021-12-10] MEDS: CLOPIDOGREL 75 MG TAB PO SCH (08:12)
[2021-12-10] MEDS: INSULIN ASPART (NovoLOG) 100 UNIT/ML VIAL SQ SCH ×4 (08:12→20:35)
[2021-12-10] MEDS: ENOXAPARIN 40 MG/0.4 ML SYRINGE SQ SCH (08:12)
[2021-12-10] MEDS: MEGESTROL 400 MG/10 ML CUP PO SCH (08:13)
[2021-12-10] MEDS: LOSARTAN 50 MG TAB PO SCH ×2 (08:13→20:35)
[2021-12-10] MEDS: METOPROLOL SUCCINATE (ER) 50 MG TAB.ER.24H PO SCH (08:13)
[2021-12-10] MEDS: PANTOPRAZOLE 40 MG TABLET PO SCH (08:13)
[2021-12-10] MEDS: SODIUM FERRIC GLUCONAT-SUCROSE 125 MG in SODIUM CHLORIDE 0.9% 100 ML IVPB SCH (08:13)
[2021-12-10 08:37] LABS: NRBC Per 100 WBC 0 /100 WBCS (0.0-0.0)
[2021-12-10 08:46] LABS: Basophils # (A) 0.02 X 10*3/uL (0.00-0.10); Basophils % (A) 0.4 %; Eosinophils # (A) 0.22 X 10*3/uL (0.04-0.35); Eosinophils % (A) 3.9 %; HCT 26.1 % (37.2-46.3); HGB 7.6 g/dL (12.0-15.0); Immature Grans, Automated 0.5 %; Lymphocytes # (A) 0.75 X 10*3/uL (0.90-5.00); Lymphocytes % (A) 13.4 %; MCH 23.5 pg (27.0-32.0); MCHC 29.1 g/dL (32.0-37.0); MCV 80.8 fL (80.0-97.0); Monocytes # (A) 0.24 X 10*3/uL (0.20-1.00); Monocytes % (A) 4.3 %; Neutrophils # (A) 4.32 X 10*3/uL (1.80-7.70); Neutrophils % (A) 77.5 %; Platelet Count 297 X 10*3/uL (140-440); RBC 3.23 X 10*6/uL (4.10-5.20); RDW 21.6 % (11.5-14.5); WBC 5.58 X 10*3/uL (4.50-10.00)
[2021-12-10 09:15] LABS: African American GFR (CKD) 63.6 (60.0-200.0); Anion Gap 11.2 mmol/L (10.00-18.00); BUN/Creat Ratio 11.64 Ratio (12.00-20.00); Blood Urea Nitrogen 12.8 mg/dL (9.0-27.0); Calcium 8.5 mg/dL (8.7-10.3); Carbon Dioxide 18.8 mmol/L (20.0-27.5); Non-African American GFR(CKD) 54.9 (60.0-200.0); Potassium 4.1 mmol/L (3.5-5.5)
--- NOTE | 2021-12-10 10:56 | P.CRDCN ---
History of Present Illness Consult date: 12/10/21 History of present illness: HISTORY OF PRESENT ILLNESS: This is a 61-year-old female with a past medical history significant for CVA, hypertension, and hyperlipidemia. Patient does not follow with a on air personality. We have been asked to see the patient in consultation for loop recorder insertion. Patient examined at the bedside. The patient is admitted to the hospital secondary to CVA. The patient has a history of CVA and had a stroke in 2013. Apparently the patient also had another stroke in August 2021 and was started on aspirin and Plavix. She subsequently developed genitourinary bleeding and was diagnosed with uterine cancer. Her aspirin and Plavix were discontinued at that time. She has been resumed on Plavix currently per n eurology. The patient denies any history of atrial fibrillation. She currently denies any chest pain or pressure. Denies shortness of breath. * EKG reveals sinus mechanism with no signs of acute ischemia * Chest xray severe cardiomegaly. Correlate for mild central venous congestion or interstitial pneumonitis. * Laboratory data: W BC 5.58. Hemoglobin 7.6. Platelet count 297. Sodium 137. Potassium 4.1. BUN 12. Creatinine 1.1. * Current home cardiac medications include hydrochlorothiazide 25 mg daily, Lipitor 40 mg at night, losartan 50 g twice a day, and metoprolol succinate 50 mg daily * Echocardiogram obtained revealed ejection fraction 55-60%, moderate LVH, negative bubble study, mild MR, mild TR, no pericardial effusion REVIEW OF SYSTEMS: At the time of my exam: CONSTITUTIONAL: Denies fever or chills. HEENT: Denies blurred vision, vision changes, or eye pain. Denies hemoptysis CARDIOVASCULAR: Denies chest pain. Denies orthopnea. Denies PND. Denies palpitations RESPIRATORY: Denies shortness of breath. GASTROINTESTINAL: Denies abdominal pain. Denies nausea or vomiting. HEMATOLOGIC: Denies bleeding disorders. GENITOURINARY: Denies any blood in urine. SKIN: Denies pruitis. Denies rash. PHYSICAL EXAM: VITAL SIGNS: Reviewed. GENERAL: Well-developed in no acute distress. HEENT: Head is normocephalic. Pupils are equal, round. Sclerae anicteric. Mucous membranes of the mouth are moist. Neck supple. No JVD or thyromegaly LUNGS: Respirations even and unlabored. Lungs essentially clear to auscultation bilaterally. HEART: Regular rate and rhythm. S1 and S2 heard. ABDOMEN: Soft. Nondistended. Nontender. EXTREMITIES: No clubbing or cyanosis. Peripheral pulses intact. No lower extremity edema NEUROLOGIC: Awake and alert. Oriented x 3. ASSESSMENT: Acute CVA History of CVA, previously on aspirin/plavix which was DC secondary to genitourinary bleeding Uterine cancer Hypertension Hyperlipidemia Diabetes PLAN: Neurology following. Patient resumed on Plavix. Continue additional cardiac medications Patient to undergo loop recorder insertion tomorrow with Dr. Hooks Further recommendations pending patient course Nurse practitioner note has been reviewed by physician. Signing provider agrees with the documented findings, assessment, and plan of care. Past Medical History Past Medical History: Cancer, Diabetes Mellitus, Hypertension Additional Past Medical History / Comment(s): PER PATIENT'S DTR- CVA AROUND 09/2021 AND WENT TO [facility], SPEECH APPEARS SLIGHTLY SLURRED, uterine ca History of Any Multi-Drug Resistant Organisms: None Reported Past Surgical History: No Surgical Hx Reported Past Psychological History: No Psychological Hx Reported Smoking Status: Current every day smoker Past Alcohol Use History: None Reported Past Drug Use History: None Reported - Past Family History family Family Medical History: No Reported History Medications and Allergies Home Medications Medication Instructions Recorded Confirmed Type Atorvastatin Calcium [Lipitor] 40 mg PO HS 11/08/21 12/08/21 History Insulin Glargine [Lantus Vial] 17 units SQ HS 11/08/21 12/08/21 History Losartan [Cozaar] 50 mg PO BID 11/08/21 12/08/21 History Pantoprazole Sodium [Protonix] 40 mg PO DAILY 11/08/21 12/08/21 History Ferrous Sulfate [Iron (65 MG 325 mg PO DAILY #30 tab 11/09/21 12/08/21 Rx Elemental)] Megestrol [Megace] 800 mg PO DAILY 12/08/21 12/08/21 History Metoprolol Succinate (ER) [Toprol 50 mg PO DAILY 12/08/21 12/08/21 History Xl] hydroCHLOROthiazide [Hydrodiuril] 25 mg PO DAILY 12/08/21 12/08/21 History Allergies Allergy/AdvReac Type Severity Reaction Status Date / Time No Known Allergies Allergy Verified 12/08/21 12:23 Physical Exam Vitals: Vital Signs Temp Pulse Pulse Resp BP BP BP 12/10/21 07:00 98 F 65 14 12/10/21 02:59 98.3 F 71 17 162/84 12/09/21 19:37 98.7 F 70 17 145/77 12/09/21 19:31 98.7 F 70 17 145/77 12/09/21 18:25 98.7 F 70 17 145/77 12/09/21 18:03 98.5 F 69 18 152/89 12/09/21 17:55 98.4 F 66 16 150/83 12/09/21 17:45 98.1 F 63 16 174/84 12/09/21 14:57 98.9 F 70 15 129/85 BP Pulse Ox 12/10/21 07:00 154/85 100 12/10/21 02:59 100 12/09/21 19:37 12/09/21 19:31 100 12/09/21 18:25 12/09/21 18:03 100 12/09/21 17:55 100 12/09/21 17:45 100 12/09/21 14:57 100 Intake and Output 12/09/21 12/10/21 12/10/21 22:59 06:59 14:59 Intake Total 310 118 Balance 310 118 Intake: Oral 118 Blood Product 310 Rc As-1 Unit 310 [id number] Other: Voiding Method Toilet Toilet # Voids 1 2 Results 12/10/21 06:18 12/10/21 06:32 Lipids 12/09/21 Range/Units 07:43 Triglycerides 145.00 (0.00-149.00) mg/dL Cholesterol 119.00 (0.00-200.00) mg/dL HDL Cholesterol 28.60 L (40.00-60.00) mg/dL Cholesterol/HDL Ratio 4.16 Ratio CBC 12/09/21 12/10/21 Range/Units 07:43 06:18 WBC 5.23 5.58 (4.50-10.00) X 10*3/uL RBC 2.97 L 3.23 L (4.10-5.20) X 10*6/uL Hgb 6.9 L* 7.6 L (12.0-15.0) g/dL Hct 23.9 L 26.1 L (37.2-46.3) % Plt Count 293 297 (140-440) X 10*3/uL Comprehensive Metabolic Panel 12/09/21 12/10/21 Range/Units 07:43 06:32 Sodium 137 137 (135-145) mmol/L Potassium 4.2 4.1 (3.5-5.5) mmol/L Chloride 106 107 (96-109) mmol/L Carbon Dioxide 19.1 L 18.8 L (20.0-27.5) mmol/L BUN 11.3 12.8 (9.0-27.0) mg/dL Creatinine 1.0 1.1 (0.6-1.5) mg/dL Glucose 106 177 H (70-110) mg/dL Calcium 8.8 8.5 L (8.7-10.3) mg/dL Current Medications Generic Name Dose Route Start Last Admin Trade Name Freq PRN Reason Stop Dose Admin Atorvastatin Calcium 40 mg 12/08/21 21:00 12/09/21 19:58 Atorvastatin 40 Mg Tab PO 40 mg HS DEANDRA Administration Clopidogrel Bisulfate 75 mg 12/09/21 12:00 12/10/21 08:12 Clopidogrel 75 Mg Tab PO 75 mg DAILY DEANDRA Administration Enoxaparin Sodium 40 mg 12/09/21 09:00 12/10/21 08:12 Enoxaparin 40 Mg/0.4 Ml Syringe SQ 40 mg DAILY DEANDRA Administration Ferric Sodium Gluconate 125 mg 110 mls @ 100 mls/hr 12/10/21 09:00 12/10/21 08:13 / Sodium Chloride IVPB 12/12/21 10:05 100 mls/hr DAILY DEANDRA Administration Insulin Aspart 0 unit 12/08/21 17:30 12/10/21 08:12 Insulin Aspart (Novolog) 100 Unit/Ml Vial SQ 2 unit ACHS DEANDRA Administration Protocol Insulin Detemir 17 unit 12/08/21 21:00 12/09/21 19:57 Insulin Detemir (Levemir) 100 Unit/Ml Syr SQ 17 unit HS DEANDRA Administration Losartan Potassium 50 mg 12/08/21 21:00 12/10/21 08:13 Losartan 50 Mg Tab PO 50 mg BID DEANDRA Administration Megestrol Acetate 800 mg 12/09/21 09:00 12/10/21 08:13 Megestrol 400 Mg/10 Ml Cup PO 800 mg DAILY DEANDRA Administration Metoprolol Succinate 50 mg 12/09/21 09:00 12/10/21 08:13 Metoprolol Succinate (Er) 50 Mg Tab.Er.24h PO 50 mg DAILY DEANDRA Administration Pantoprazole Sodium 40 mg 12/09/21 09:00 12/10/21 08:13 Pantoprazole 40 Mg Tablet PO 40 mg DAILY DEANDRA Administration Intake and Output 12/09/21 12/10/21 12/10/21 22:59 06:59 14:59 Intake Total 310 118 Balance 310 118 Intake: Oral 118 Blood Product 310 Rc As-1 Unit 310 [id number] Other: Voiding Method Toilet Toilet # Voids 1 2 12/10/21 06:18 12/10/21 06:32
[2021-12-10] MEDS ORDERED: SODIUM CHLORIDE 0.9% 1,000 ML IV SCH ×2 (11:00)
[2021-12-10 12:01] LABS: Glucose,Whole Blood 159 mg/dL (75-99)
--- NOTE | 2021-12-10 12:56 | P.PN ---
Progress Note - Text Progress Note Date: 12/10/21 Chief Complaint: Dysarthria Patient is a 61-year-old -[place] female with past medical history remarkable for multiple strokes with residual dysarthria, recently diagnosed uterine cancer currently undergoing radiation therapy, hypertension who presents emergency department for further evaluation at this time. Patient's daughter states that this morning, patient seems somewhat more confused. She states that this is similar to prior strokes which is why she wanted her mother to be evaluated. Patient does have residual deficits from prior strokes, with residual dysarthria. This morning, patient apparently did not know the year the president was, had mild confusion with mildly worsening dysarthria and possible facial droop. She currently is back to her normal baseline, with family at bedside to confirm. Last known well was sometime yesterday afternoon. Patient denies any acute symptoms at this time include chest pain, shortness of breath, cough, fever abdominal pain, nausea, vomiting. She is blood sugar is within normal limits. No recent travel or sick contacts. December 10: Patient is under sound physicians to the observation policy of [facility]. I assumed the care of patient today as patient is with inpatient yesterday. Sitting at the edge of the bed. Tolerating a diet. Pending loop monitor placement tomorrow. No new issues. Active Medications Atorvastatin Calcium (Atorvastatin 40 Mg Tab) 40 mg PO HS [facility] Last Admin: 12/09/21 19:58 Dose: 40 mg Clopidogrel Bisulfate (Clopidogrel 75 Mg Tab) 75 mg PO DAILY DEANDRA Last Admin: 12/10/21 08:12 Dose: 75 mg Enoxaparin Sodium (Enoxaparin 40 Mg/0.4 Ml Syringe) 40 mg SQ DAILY DEANDRA Last Admin: 12/10/21 08:12 Dose: 40 mg Ferric Sodium Gluconate 125 mg (/ Sodium Chloride) 110 mls @ 100 mls/hr IVPB DAILY DEANDRA Stop: 12/12/21 10:05 Last Admin: 12/10/21 08:13 Dose: 100 mls/hr Sodium Chloride (Saline 0.9%) 1,000 mls @ 50 mls/hr IV .Q20H DEANDRA Last Admin: 12/10/21 12:32 Dose: 50 mls/hr Insulin Aspart (Insulin Aspart (Novolog) 100 Unit/Ml Vial) 0 unit SQ ACHS DEANDRA; Protocol Last Admin: 12/10/21 12:31 Dose: 1 unit Insulin Detemir (Insulin Detemir (Levemir) 100 Unit/Ml Syr) 17 unit SQ HS [facility] Last Admin: 12/09/21 19:57 Dose: 17 unit Losartan Potassium (Losartan 50 Mg Tab) 50 mg PO BID [facility] Last Admin: 12/10/21 08:13 Dose: 50 mg Megestrol Acetate (Megestrol 400 Mg/10 Ml Cup) 800 mg PO DAILY [facility] Last Admin: 12/10/21 08:13 Dose: 800 mg Metoprolol Succinate (Metoprolol Succinate (Er) 50 Mg Tab.Er.24h) 50 mg PO DAILY [facility] Last Admin: 12/10/21 08:13 Dose: 50 mg Pantoprazole Sodium (Pantoprazole 40 Mg Tablet) 40 mg PO DAILY [facility] Last Admin: 12/10/21 08:13 Dose: 40 mg Physical examination: VITAL SIGNS: [98, 65, 14, 154/85,] GENERAL APPEARANCE: BMI 34.5, sitting in the edge of the bed, eating lunch HEENT: Normal external appearance of nose and ear. Oral cavity normal EYES: Pupils equal. Conjunctiva normal. NECK: JVD not raised. Mass not palpable. RESPIRATORY: Respiratory effort normal. Lungs clear to auscultation. CARDIOVASCULAR: First and second sounds normal. No edema. ABDOMEN: Soft. Liver and spleen not palpable. No tenderness. No mass palpable. NEUROLOGICAL: Dysarthric PSYCHIATRY: Mood and affect normal. Able to answer questions appropriately. INVESTIGATIONS, reviewed in the clinical context: White count 5.5 hemoglobin 7.6 platelets 297 potassium 4.1 creatinine 1.1 LDL 61 EKG: Normal sinus rhythm Brain MRI: Multiple small lacunar infarct involving the right frontal and parietal levels with some involvement of deep left parietal level. Diffuse cerebral atrophy and moderate to advanced chronic small vessel ischemic changes. Prominent or left-sided encephalomalacia. CT angiogram brain: Left vertebral artery hypoplastic and severe narrowing of the distal portion. 3.5 mm saccular aneurysm from the supraclinoid right ICA. Some other findings. 2-D echocardiogram: EF 55-60%. Moderate concentric LVH. Assessment and plan: #Recurrent acute CVA multiple lacunar infarcts -Plavix added to aspirin -Symptoms resolved prior to arrival to ER -Lipitor 40 mg daily at bedtime -Neurology consulted -EKG normal sinus rhythm -Pending loop recorder tomorrow #Uterine cancer -The patient's daughter stated that she was seen at [facility] and her mom was not a candidate for hysterectomy -She is currently receiving radiation therapy #Acute on Chronic microcytic iron deficienc anemia secondary to postmenopausal bleeding due to uterine cancer -The patient's daughter stated that the patient still have intermittent episodes of vaginal bleed. -Consult oncology service -Received 1 unit of packed RBCs #Essential Hypertension -Controlled -Resume losartan and metoprolol #Type 2 diabetes mellitus, chronically on insulin -A1c is 6.1 -Levemir 17 units subcu daily at bedtime -Diabetic diet. Sliding scale insulin. #Obesity BMI 34 Weight loss measures -Chronic dysarthria from previous strokes -GERD Protonix 40 mg daily #DVT prophylaxis with subcutaneous Lovenox -Full code Continue current medications. Discussed with patient. 4 loop monitor placement tomorrow.
--- NOTE | 2021-12-10 15:17 | P.PN ---
Subjective Progress Note Date: 12/09/21 Patient was seen for a follow-up. Patient is laying comfortably in the bed. Patient continues to have some slurred speech. No new focal symptoms. Objective - Vital Signs Vital signs: Vital Signs Temp 98.9 F 12/09/21 14:57 Pulse 70 12/09/21 14:57 Resp 15 12/09/21 14:57 BP 129/85 12/09/21 14:57 Pulse Ox 100 12/09/21 14:57 FiO2 Intake & Output 12/08/21 12/09/21 12/09/21 18:59 06:59 18:59 Weight 91.172 kg 91.172 kg Other: Voiding Method Toilet # Voids 1 1 - Exam Examination essentially unchanged. - Labs CBC & Chem 7: 12/10/21 06:18 12/10/21 06:32 Labs: Abnormal Lab Results - Last 24 Hours (Table) 12/08/21 12/08/21 12/08/21 Range/Units 10:36 18:41 20:50 RBC (4.10-5.20) X 10*6/uL Hgb (12.0-15.0) g/dL Hct (37.2-46.3) % MCH (27.0-32.0) pg MCHC (32.0-37.0) g/dL RDW (11.5-14.5) % Plt Count Comment Lymphocytes # (0.90-5.00) X 10*3/uL Carbon Dioxide (20.0-27.5) mmol/L BUN/Creatinine Ratio (12.00-20.00) Ratio POC Glucose (mg/dL) 125 H 171 H (75-99) mg/dL Hemoglobin A1c 6.1 H (0.0-6.0) % HDL Cholesterol (40.00-60.00) mg/dL Crossmatch 12/09/21 12/09/21 12/09/21 Range/Units 07:29 07:43 07:43 RBC 2.97 L (4.10-5.20) X 10*6/uL Hgb 6.9 L* (12.0-15.0) g/dL Hct 23.9 L (37.2-46.3) % MCH 23.2 L (27.0-32.0) pg MCHC 28.9 L (32.0-37.0) g/dL RDW 24.8 H (11.5-14.5) % Plt Count Comment A Lymphocytes # 0.59 L (0.90-5.00) X 10*3/uL Carbon Dioxide 19.1 L (20.0-27.5) mmol/L BUN/Creatinine Ratio 11.08 L (12.00-20.00) Ratio POC Glucose (mg/dL) 112 H (75-99) mg/dL Hemoglobin A1c (0.0-6.0) % HDL Cholesterol 28.60 L (40.00-60.00) mg/dL Crossmatch 12/09/21 12/09/21 Range/Units 12:04 14:32 RBC (4.10-5.20) X 10*6/uL Hgb (12.0-15.0) g/dL Hct (37.2-46.3) % MCH (27.0-32.0) pg MCHC (32.0-37.0) g/dL RDW (11.5-14.5) % Plt Count Comment Lymphocytes # (0.90-5.00) X 10*3/uL Carbon Dioxide (20.0-27.5) mmol/L BUN/Creatinine Ratio (12.00-20.00) Ratio POC Glucose (mg/dL) 122 H (75-99) mg/dL Hemoglobin A1c (0.0-6.0) % HDL Cholesterol (40.00-60.00) mg/dL Crossmatch See Detail Assessment and Plan Assessment: * Acute ischemic stroke manifesting with dysarthric speech and perhaps mild expressive aphasia. Patient has history of strokes in 2013, with some residual speech deficits. Also had a minor stroke in August 2021, with no further residual deficits. * Uterine cancer, undergoing radiation therapy * Asymptomatic saccular cerebral aneurysm, 3.5 mm projecting inferiorly and posteriorly from the supraclinoid right ICA. * Hypertension * Diabetes * Hyperlipidemia * Tobacco use * Previous history of strokes. Plan: * MRI brain with and without contrast revealed multiple small lacunar infarcts involving the right frontal and parietal levels with some involvement deep left parietal level. Background mild diffuse cerebral atrophy and moderate to advanced chronic small vessel ischemic change along with slightly more prominent old left-sided encephalomalacia. I personally reviewed MRI of the brain and agree with the findings. * 2-D echo with bubble study revealed normal left ventricular EF 55-60%, moderate LVH, negative bubble study. Mild MR. Mild TR. * Cardiology consulted for possible loop recorder placement to rule out PAF. * Fasting a.m. lipid panel with cholesterol 119, LDL 61.4, HDL 28 and triglycerides 145. Continue Lipitor 40 mg daily. * Hemoglobin A1c 6.1, well controlled * Telemetry monitoring so far showing sinus rhythm with no other arrhythmia. * May control blood pressure to normotensive level. * Continue Plavix 75 mg daily. Patient previously had developed bleed from DAP. * Regarding asymptomatic right ICA cerebral aneurysm, would recommend patient follow up with Dr. Ruth in his office as outpatient. * Patient on Lovenox 40 mg subcu daily for DVT prophylaxis. * Recommend complete tobacco cessation. * Discussed with patient's son and daughter separately in detail.
[2021-12-10 16:45] LABS: Glucose,Whole Blood 167 mg/dL (75-99)
[2021-12-10 19:27] VITALS: RESP 18
[2021-12-10 19:39] LABS: Glucose,Whole Blood 217 mg/dL (75-99)
[2021-12-10] MEDS: ATORVASTATIN 40 MG TAB PO SCH (20:35)
[2021-12-10] MEDS: INSULIN DETEMIR (LEVEMIR) 100 UNIT/ML SYR SQ SCH (20:36)
[2021-12-11 07:18] LABS: Anisocytosis Moderate; Basophils % (A) 0 %; Eosinophils # (A) 0.2 k/uL (0-0.7); Eosinophils % (A) 3 %; HCT 27.9 % (34.0-46.0); HGB 8.6 gm/dL (11.4-16.0); Hypochromasia Marked; Lymphocytes # (A) 1.1 k/uL (1.0-4.8); Lymphocytes % (A) 16 %; MCH 24.8 pg (25.0-35.0); MCHC 30.8 g/dL (31.0-37.0); MCV 80.6 fL (80.0-100.0); Mean Platelet Volume 7.4; Microcytosis Moderate; Monocytes # (A) 0.2 k/uL (0-1.0); Monocytes % (A) 3 %; Neutrophils % (A) 76 %; Platelet Count 302 k/uL (150-450); Poikilocytosis Marked; RBC 3.46 m/uL (3.80-5.40); RDW 21.4 % (11.5-15.5); WBC 6.6 k/uL (3.8-10.6)
[2021-12-11 07:21] LABS: African American GFR (CKD) 74 (>60 ml/min/1.73 sqM); Anion Gap 8 mmol/L; Blood Urea Nitrogen 12 mg/dL (7-17); Calcium 8.8 mg/dL (8.4-10.2); Carbon Dioxide 19 mmol/L (22-30); Chloride 114 mmol/L (98-107); Glucose 105 mg/dL (74-99); Non-African American GFR(CKD) 64 (>60 ml/min/1.73 sqM); Potassium 4.2 mmol/L (3.5-5.1); Sodium 141 mmol/L (137-145)
[2021-12-11 07:35] LABS: Glucose,Whole Blood 108 mg/dL (75-99)
[2021-12-11] MEDS: INSULIN ASPART (NovoLOG) 100 UNIT/ML VIAL SQ SCH ×3 (08:09→17:26)
[2021-12-11] MEDS ORDERED: IV FLUID CONTINUATION 1,000 ML IV ONE (08:56)
[2021-12-11] MEDS ORDERED: MIDAZOLAM 2 MG/2 ML VIAL IVP ONE (09:13)
[2021-12-11] MEDS ORDERED: LIDOCAINE 1% INJ 10MG/ML (30 ML VIAL-PF) SQ ONE (09:14)
[2021-12-11] MEDS ORDERED: fentaNYL (PF) 50 MCG/ML 2 ML AMP ONE (09:15)
[2021-12-11] MEDS ORDERED: fentaNYL (PF) 50 MCG/ML 2 ML AMP IVP ONE (09:15)
[2021-12-11] MEDS ORDERED: SODIUM CHLORIDE 0.9% 1,000 ML IV SCH (09:30)
--- NOTE | 2021-12-11 09:33 | P.PCN ---
Date of Procedure: 12/11/21 Preoperative Diagnosis: Cryptogenic CVA Postoperative Diagnosis: The same Procedure(s) Performed: Insertion of [employer] loop recorder Description of Procedure: This 61-year-old female is admitted with recurrent CVA, which are unexplained. A loop recorder insertion is requested. Patient was explained the risks and benefits of the procedure. Procedure: Patient was brought to the lab in a fasting state. She was prepped and draped in the usual fashion. The skin and the third to fourth intercostal space was infiltrated with lidocaine. An incision was made in the skin and the loop recorder was inserted in the usual fashion. Patient tolerated the procedure well. Satisfactory signals were obtained. The incision was closed with 2 stay silk sutures. Patient tolerated the procedure well. Patient was given 1 mg of Versed and 25 g of fentanyl for sedation. The duration of the procedure is 9 minutes. Final impression: #1. Successful implantation of loop recorder. Plan: Patient is being transferred to telemetry unit. Could be discharged home later today. Follow-up in the office in one week
[2021-12-11] MEDS: LOSARTAN 50 MG TAB PO SCH (09:48)
[2021-12-11] MEDS: METOPROLOL SUCCINATE (ER) 50 MG TAB.ER.24H PO SCH (09:48)
[2021-12-11] MEDS: MEGESTROL 400 MG/10 ML CUP PO SCH (09:48)
[2021-12-11] MEDS: SODIUM FERRIC GLUCONAT-SUCROSE 125 MG in SODIUM CHLORIDE 0.9% 100 ML IVPB SCH (09:48)
[2021-12-11] MEDS: CLOPIDOGREL 75 MG TAB PO SCH (09:48)
[2021-12-11] MEDS: PANTOPRAZOLE 40 MG TABLET PO SCH (09:48)
[2021-12-11] MEDS: ENOXAPARIN 40 MG/0.4 ML SYRINGE SQ SCH (09:49)
[2021-12-11 12:18] LABS: Glucose,Whole Blood 124 mg/dL (75-99)
[2021-12-11 14:09] VITALS: BP 163/82; PULSE 70; TEMP 98
--- NOTE | 2021-12-11 17:54 | P.DS ---
Providers Date of admission: 12/09/21 14:05 Expected date of discharge: 12/11/21 Attending physician: David Barillas Consults: 12/08/21 12:37 Consult Physician Routine Consulting Provider: Peggy Brennan Consult Reason/Comments: TIA Do you want consulting provider notified?: Already Contacted 12/09/21 11:44 Consult Physician Routine Consulting Provider: Dalton Solorio Consult Reason/Comments: recurrent CVA needs loop recorder Do you want consulting provider notified?: Yes 12/09/21 14:15 Consult Physician Routine Consulting Provider: Palomo Fleming Consult Reason/Comments: Endometrial cancer with active postmenopausal bleeding and iron deficiency Do you want consulting provider notified?: Yes Primary care physician: Marie Dubon [facility] Course: Chief Complaint: Dysarthria Patient is a 61-year-old -[place] female with past medical history remarkable for multiple strokes with residual dysarthria, recently diagnosed uterine cancer currently undergoing radiation therapy, hypertension who presents emergency department for further evaluation at this time. Patient's daughter states that this morning, patient seems somewhat more confused. She states that this is similar to prior strokes which is why she wanted her mother to be evaluated. Patient does have residual deficits from prior strokes, with residual dysarthria. This morning, patient apparently did not know the year the president was, had mild confusion with mildly worsening dysarthria and possible facial droop. She currently is back to her normal baseline, with family at bedside to confirm. Last known well was sometime yesterday afternoon. Patient denies any acute symptoms at this time include chest pain, shortness of breath, cough, fever abdominal pain, nausea, vomiting. She is blood sugar is within normal limits. No recent travel or sick contacts. December 10: Patient is under sound physicians to the observation policy of [facility]. I assumed the care of patient today as patient is with inpatient yesterday. Sitting at the edge of the bed. Tolerating a diet. Pending loop monitor placement tomorrow. No new issues. December 11: Patient loop monitor placed today. Cleared by cardiology and neurology. Discussed with patient. Physical examination: VITAL SIGNS: 98, 70, 18, 1 43 x 85, 98% room air GENERAL APPEARANCE: Comfortable HEENT: Normal external appearance of nose and ear. Oral cavity normal EYES: Pupils equal. Conjunctiva normal. NECK: JVD not raised. Mass not palpable. RESPIRATORY: Respiratory effort normal. Lungs clear to auscultation. CARDIOVASCULAR: First and second sounds normal. No edema. ABDOMEN: Soft. Liver and spleen not palpable. No tenderness. No mass palpable. NEUROLOGICAL: Dysarthric PSYCHIATRY: Mood and affect normal. Able to answer questions appropriately. INVESTIGATIONS, reviewed in the clinical context: December 11: White count 6.6 hemoglobin 8.6 potassium 4.2 creatinine 0.97 White count 5.5 hemoglobin 7.6 platelets 297 potassium 4.1 creatinine 1.1 LDL 61 EKG: Normal sinus rhythm Brain MRI: Multiple small lacunar infarct involving the right frontal and parietal levels with some involvement of deep left parietal level. Diffuse cerebral atrophy and moderate to advanced chronic small vessel ischemic changes. Prominent or left-sided encephalomalacia. CT angiogram brain: Left vertebral artery hypoplastic and severe narrowing of the distal portion. 3.5 mm saccular aneurysm from the supraclinoid right ICA. Some other findings. 2-D echocardiogram: EF 55-60%. Moderate concentric LVH. Assessment and plan: #Recurrent acute CVA multiple lacunar infarcts -Plavix added to aspirin -Symptoms resolved prior to arrival to ER -Lipitor 40 mg daily at bedtime -Neurology consulted -EKG normal sinus rhythm -Loop monitor placed today by Dr. Mcdonnell #Uterine cancer -The patient's daughter stated that she was seen at [facility] and her mom was not a candidate for hysterectomy -She is currently receiving radiation therapy #Acute on Chronic microcytic iron deficienc anemia secondary to postmenopausal bleeding due to uterine cancer -The patient's daughter stated that the patient still have intermittent episodes of vaginal bleed. -Consult oncology service -Received 1 unit of packed RBCs #Essential Hypertension -Controlled -Resume losartan and metoprolol #Type 2 diabetes mellitus, chronically on insulin -A1c is 6.1 -Levemir 17 units subcu daily at bedtime -Diabetic diet. Sliding scale insulin. #Obesity BMI 34 Weight loss measures -Chronic dysarthria from previous strokes -GERD Protonix 40 mg daily #DVT prophylaxis with subcutaneous Lovenox -Full code Disposition: Home Plan - Discharge Summary Discharge Rx Participant: No New Discharge Prescriptions: New Chlorthalidone 25 mg PO DAILY #30 tab Clopidogrel [Plavix] 75 mg PO DAILY #30 tab Continue Insulin Glargine [Lantus Vial] 17 units SQ HS Losartan [Cozaar] 50 mg PO BID Pantoprazole Sodium [Protonix] 40 mg PO DAILY Ferrous Sulfate [Iron (65 MG Elemental)] 325 mg PO DAILY #30 tab Atorvastatin Calcium [Lipitor] 40 mg PO HS Metoprolol Succinate (ER) [Toprol XL] 50 mg PO DAILY Megestrol [Megace] 800 mg PO DAILY Discontinued hydroCHLOROthiazide [Hydrodiuril] 25 mg PO DAILY Discharge Medication List Atorvastatin Calcium [Lipitor] 40 mg PO HS 11/08/21 [History] Insulin Glargine [Lantus Vial] 17 units SQ HS 11/08/21 [History] Losartan [Cozaar] 50 mg PO BID 11/08/21 [History] Pantoprazole Sodium [Protonix] 40 mg PO DAILY 11/08/21 [History] Ferrous Sulfate [Iron (65 MG Elemental)] 325 mg PO DAILY #30 tab 11/09/21 [Rx] Megestrol [Megace] 800 mg PO DAILY 12/08/21 [History] Metoprolol Succinate (ER) [Toprol XL] 50 mg PO DAILY 12/08/21 [History] Chlorthalidone 25 mg PO DAILY #30 tab 12/11/21 [Rx] Clopidogrel [Plavix] 75 mg PO DAILY #30 tab 12/11/21 [Rx] Follow up Appointment(s)/Referral(s): Marie Dubon MD [Primary Care Provider] - 1-2 days Capri Hooks MD [STAFF PHYSICIAN] - 1 Week (Follow up in the office for loop recorder suture removal in one week. ) Patient Instructions/Handouts: Cardiac Loop Recorder Insertion (GEN) Discharge Disposition: HOME SELF-CARE
--- NOTE | 2021-12-12 16:26 | P.PN ---
Subjective Progress Note Date: 12/10/21 Patient was seen for a follow-up. Patient is laying comfortably in the bed. Patient continues to have some slurred speech. No new focal symptoms. Denies any headache, focal weakness. Objective - Vital Signs Vital signs: Vital Signs Temp 98 F 12/11/21 14:08 Pulse 70 12/11/21 14:08 Resp 18 12/11/21 14:08 BP 163/82 12/11/21 14:08 Pulse Ox 100 12/11/21 14:08 FiO2 Intake & Output 12/11/21 12/12/21 12/12/21 18:59 06:59 18:59 Intake Total 220 Balance 220 Intake: IV 100 Oral 120 - Exam Patient is sitting on side of the bed. She appears comfortable. Speech is mildly dysarthric. Patient's muscle strength is normal. No ataxia. Examina tion essentially unchanged. - Labs CBC & Chem 7: 12/11/21 06:35 12/11/21 06:35 Assessment and Plan Assessment: * Acute ischemic stroke manifesting with dysarthric speech and perhaps mild expressive aphasia. Patient has history of strokes in 2013, with some residual speech deficits. Also had a minor stroke in August 2021, with no further residual deficits. * Uterine cancer, undergoing radiation therapy * Asymptomatic saccular cerebral aneurysm, 3.5 mm projecting inferiorly and posteriorly from the supraclinoid right ICA. * Hypertension * Diabetes * Hyperlipidemia * Tobacco use * Previous history of strokes. Plan: * Patient to undergo a loop recorder placement in the morning. Thereafter patient can be discharged. * MRI brain with and without contrast revealed multiple small lacunar infarcts involving the right frontal and parietal levels with some involvement deep left parietal level. Background mild diffuse cerebral atrophy and moderate to advanced chronic small vessel ischemic change along with slightly more prominent old left-sided encephalomalacia. I personally reviewed MRI of the brain and appears somewhat embolic small, tiny areas (around 6-7) in the right hemispheric region, somewhat in the peripheral watershed territory of right MCA. * 2-D echo with bubble study revealed normal left ventricular EF 55-60%, moderate LVH, negative bubble study. Mild MR. Mild TR. * Cardiology consulted for possible loop recorder placement to rule out PAF. * Fasting a.m. lipid panel with cholesterol 119, LDL 61.4, HDL 28 and triglyc erides 145. Continue Lipitor 40 mg daily. * Hemoglobin A1c 6.1, well controlled * Telemetry monitoring so far showing sinus rhythm with no other arrhythmia. * May control blood pressure to normotensive level. * Continue Plavix 75 mg daily. Patient previously had developed bleed from DAP. * Regarding asymptomatic right ICA cerebral aneurysm, would recommend patient follow up with Dr. Ruth in his office as outpatient. * Patient on Lovenox 40 mg subcu daily for DVT prophylaxis. * Recommend complete tobacco cessation.
== END 2021-12-11 17:46 | disposition home or self-care (01) | DRG 42 ==
LOC: EC 09:43 → 6NMEDSUR 12:41 → OBSVTOIN 12-09 14:05
PROVIDERS: ADMIT Hospitalist; ATTEND Hospitalist
PROC: 4A12X4Z Monitoring of Cardiac Electrical Activity, External Approach (ICD-10-PCS; 2021-12-11)
PROC: 0JH602Z Insertion of Monitoring Device into Chest Subcutaneous Tissue and Fascia, Open Approach (ICD-10-PCS; principal; 2021-12-11 09:00)
DX: I63.81 Other cerebral infarction due to occlusion or stenosis of small artery (principal); D50.9 Iron deficiency anemia, unspecified; C54.1 Malignant neoplasm of endometrium; D63.0 Anemia in neoplastic disease; R41.0 Disorientation, unspecified; E11.9 Type 2 diabetes mellitus without complications; E66.9 Obesity, unspecified; E78.5 Hyperlipidemia, unspecified; F17.210 Nicotine dependence, cigarettes, uncomplicated; I10 Essential (primary) hypertension; I69.322 Dysarthria following cerebral infarction; R47.01 Aphasia; I08.1 Rheumatic disorders of both mitral and tricuspid valves; R29.810 Facial weakness; I67.1 Cerebral aneurysm, nonruptured; K21.9 Gastro-esophageal reflux disease without esophagitis; N95.0 Postmenopausal bleeding; Z68.34 Body mass index [BMI] 34.0-34.9, adult; Z79.02 Long term (current) use of antithrombotics/antiplatelets; Z79.4 Long term (current) use of insulin; Z79.899 Other long term (current) drug therapy; Z85.42 Personal history of malignant neoplasm of other parts of uterus; Z86.59 Personal history of other mental and behavioral disorders
CPT/HCPCS: 33285; 36415; 70450; 70496; 70498; 70553; 71046; 80048; 80053; 80061; 81001; 82607; 82746; 83036; 84443; 85025; 85610; 85730; 86850; 86900; 86901; 86920; 93005; 93306; 96360; 99291

== ENCOUNTER → 2021-12-27 | Outpatient (CLI) | payer OTHER ==
[2021-12-27 22:34] LABS: Basophils # (A) 0.02 X 10*3/uL (0.00-0.10); Basophils % (A) 0.3 %; Eosinophils # (A) 0.48 X 10*3/uL (0.04-0.35); Eosinophils % (A) 8.1 %; HCT 30.3 % (37.2-46.3); HGB 8.8 g/dL (12.0-15.0); Immature Grans, Automated 0.3 %; Lymphocytes # (A) 0.68 X 10*3/uL (0.90-5.00); Lymphocytes % (A) 11.5 %; MCV 79.3 fL (80.0-97.0); Mean Platelet Volume 10.6 fL (9.5-12.2); Monocytes # (A) 0.34 X 10*3/uL (0.20-1.00); Monocytes % (A) 5.7 %; NRBC Per 100 WBC 0 /100 WBCS (0.0-0.0); Neutrophils # (A) 4.39 X 10*3/uL (1.80-7.70); Neutrophils % (A) 74.1 %; Platelet Count 310 X 10*3/uL (140-440); RBC 3.82 X 10*6/uL (4.10-5.20); RDW 20.2 % (11.5-14.5); WBC 5.93 X 10*3/uL (4.50-10.00)
[2021-12-28 00:51] LABS: African American GFR (CKD) 59.1 (60.0-200.0); Anion Gap 13.2 mmol/L (10.00-18.00); BUN/Creat Ratio 15.13 Ratio (12.00-20.00); Blood Urea Nitrogen 17.7 mg/dL (9.0-27.0); Calcium 9.7 mg/dL (8.7-10.3); Carbon Dioxide 21.3 mmol/L (20.0-27.5); Potassium 3.8 mmol/L (3.5-5.5)
== END | disposition home or self-care (01) ==
LOC: LABWHC1 14:56
PROVIDERS: ATTEND Radiology Radiation Oncology
DX: Z51.0 Encounter for antineoplastic radiation therapy (principal); C54.1 Malignant neoplasm of endometrium
CPT/HCPCS: 36415; 80048; 85025

== ENCOUNTER 2022-01-02 12:27 | Observation (INO) | payer OTHER ==
[2022-01-02] MEDS ORDERED: SODIUM CHLORIDE 0.9% 1,000 ML IV STA (12:43)
--- NOTE | 2022-01-02 12:46 | ED ---
General Adult HPI - General Chief complaint: Syncope Stated complaint: Syncope Time Seen by Provider: 01/02/22 12:33 Source: patient, family, RN notes reviewed Mode of arrival: EMS Limitations: no limitations - History of Present Illness Initial comments: Patient is a pleasant 61-year-old female presenting to the emergency department with syncopal episode. Patient was at her primary care physician's office. Patient did not have blood work or other event that could've led to this. Patient has been having heavy bleeding however for the past week. Heavier than a regular menses. Patient is changing a pad approximately every 2 hours. No lightheadedness or dyspnea. No history of similar symptoms previously. Patient does have stage II uterine cancer and currently is under radiation therapy. - Related Data Home Medications Medication Instructions Recorded Confirmed Atorvastatin Calcium [Lipitor] 40 mg PO HS 11/08/21 01/02/22 Insulin Glargine [Lantus Vial] 15 units SQ HS 11/08/21 01/02/22 Losartan [Cozaar] 50 mg PO BID 11/08/21 01/02/22 Pantoprazole Sodium [Protonix] 40 mg PO DAILY 11/08/21 01/02/22 Megestrol [Megace] 800 mg PO DAILY 12/08/21 01/02/22 Metoprolol Succinate (ER) [Toprol 50 mg PO DAILY 12/08/21 01/02/22 XL] Previous Rx's Medication Instructions Recorded Ferrous Sulfate [Iron (65 MG 325 mg PO DAILY #30 tab 11/09/21 Elemental)] Chlorthalidone 25 mg PO DAILY #30 tab 12/11/21 Clopidogrel [Plavix] 75 mg PO DAILY #30 tab 12/11/21 Allergies Allergy/AdvReac Type Severity Reaction Status Date / Time No Known Allergies Allergy Verified 01/02/22 15:03 Review of Systems ROS Statement: Those systems with pertinent positive or pertinent negative responses have been documented in the HPI. ROS Other: All systems not noted in ROS Statement are negative. Constitutional: Denies: fever Eyes: Denies: eye pain ENT: Denies: ear pain Respiratory: Denies: cough Cardiovascular: Denies: chest pain Endocrine: Denies: fatigue Gastrointestinal: Denies: abdominal pain Genitourinary: Reports: as per HPI Musculoskeletal: Denies: back pain Skin: Denies: rash Neurological: Denies: weakness Past Medical History Past Medical History: Cancer, Diabetes Mellitus, Hypertension Additional Past Medical History / Comment(s): PER PATIENT'S DTR- CVA AROUND 09/2021 AND WENT TO [facility], SPEECH APPEARS SLIGHTLY SLURRED, uterine ca History of Any Multi-Drug Resistant Organisms: None Reported Past Surgical History: No Surgical Hx Reported Past Psychological History: No Psychological Hx Reported Smoking Status: Current every day smoker Past Alcohol Use History: None Reported Past Drug Use History: None Reported - Past Family History family Family Medical History: No Reported History General Exam Limitations: no limitations General appearance: alert, in no apparent distress Head exam: Present: atraumatic, normocephalic Eye exam: Present: normal appearance, PERRL, EOMI Neck exam: Present: normal inspection Respiratory exam: Present: normal lung sounds bilaterally Cardiovascular Exam: Present: regular rate, normal rhythm Expanded Peripheral pulses: 2+: Radial (R), Radial (L), Dorsalis Pedis (R), Dorsalis Pedis (L) GI/Abdominal exam: Present: soft. Absent: distended, tenderness, pulsatile mass Extremities exam: Present: normal inspection. Absent: pedal edema, calf tenderness Neurological exam: Present: alert, oriented X3, CN II-XII intact. Absent: motor sensory deficit Expanded Neurological exam: Present: protecting the airway Patient oriented to: Present: person, place, time Speech: Present: fluid speech Cranial nerves: EOM's Intact: Normal, Facial Sensation: Normal Motor strength exam: RUE: 5, LUE: 5, RLE: 5, LLE: 5 Eye Response: (4) open spontaneously Motor Response: (6) obeys commands Verbal Response: (5) oriented Psychiatric exam: Present: normal affect, normal mood Skin exam: Present: normal color Course Vital Signs 01/02/22 01/02/22 12:30 15:11 Temperature 97.9 F Pulse Rate 78 73 Respiratory 20 20 Rate Blood Pressure 142/90 147/95 O2 Sat by Pulse 100 100 Oximetry - Reevaluation(s) Reevaluation #1: 01/02/22 15:42 Case was discussed with Dr. Boykin who does recommend 1 unit. Patient reevaluated. Patient and family updated. Dr. Casillas has been paged for admission covering Dr. Barillas, who admits for Dr. Dubon. Medical Decision Making - Lab Data Result diagrams: 01/02/22 12:48 01/02/22 12:48 Lab Results 01/02/22 01/02/22 01/02/22 Range/Units 12:48 12:48 12:48 WBC 6.8 (3.8-10.6) k/uL RBC 2.96 L (3.80-5.40) m/uL Hgb 7.5 L (11.4-16.0) gm/dL Hct 24.1 L (34.0-46.0) % MCV 81.2 (80.0-100.0) fL MCH 25.3 (25.0-35.0) pg MCHC 31.2 (31.0-37.0) g/dL RDW 19.5 H (11.5-15.5) % Plt Count 154 (150-450) k/uL MPV 7.7 Neutrophils % 85 % Lymphocytes % 5 % Monocytes % 3 % Eosinophils % 6 % Basophils % 0 % Neutrophils # 5.8 (1.3-7.7) k/uL Lymphocytes # 0.4 L (1.0-4.8) k/uL Monocytes # 0.2 (0-1.0) k/uL Eosinophils # 0.4 (0-0.7) k/uL Basophils # 0.0 (0-0.2) k/uL Hypochromasia Marked Poikilocytosis Slight Anisocytosis Slight Microcytosis Slight PT (9.0-12.0) sec INR (<1.2) APTT (22.0-30.0) sec Sodium 138 (137-145) mmol/L Potassium 3.4 L (3.5-5.1) mmol/L Chloride 108 H (98-107) mmol/L Carbon Dioxide 21 L (22-30) mmol/L Anion Gap 9 mmol/L BUN 20 H (7-17) mg/dL Creatinine 1.19 H (0.52-1.04) mg/dL Est GFR (CKD-EPI)AfAm 58 (>60 ml/min/1.73 sqM) Est GFR (CKD-EPI)NonAf 50 (>60 ml/min/1.73 sqM) Glucose 110 H (74-99) mg/dL Calcium 8.9 (8.4-10.2) mg/dL Magnesium 1.8 (1.6-2.3) mg/dL Total Bilirubin 0.2 (0.2-1.3) mg/dL AST 18 (14-36) U/L ALT 12 (4-34) U/L Alkaline Phosphatase 91 (38-126) U/L Troponin I <0.012 (0.000-0.034) ng/mL Total Protein 6.7 (6.3-8.2) g/dL Albumin 3.9 (3.5-5.0) g/dL 01/02/22 Range/Units 14:53 WBC (3.8-10.6) k/uL RBC (3.80-5.40) m/uL Hgb (11.4-16.0) gm/dL Hct (34.0-46.0) % MCV (80.0-100.0) fL MCH (25.0-35.0) pg MCHC (31.0-37.0) g/dL RDW (11.5-15.5) % Plt Count (150-450) k/uL MPV Neutrophils % % Lymphocytes % % Monocytes % % Eosinophils % % Basophils % % Neutrophils # (1.3-7.7) k/uL Lymphocytes # (1.0-4.8) k/uL Monocytes # (0-1.0) k/uL Eosinophils # (0-0.7) k/uL Basophils # (0-0.2) k/uL Hypochromasia Poikilocytosis Anisocytosis Microcytosis PT 10.3 (9.0-12.0) sec INR 0.9 (<1.2) APTT 23.1 (22.0-30.0) sec Sodium (137-145) mmol/L Potassium (3.5-5.1) mmol/L Chloride (98-107) mmol/L Carbon Dioxide (22-30) mmol/L Anion Gap mmol/L BUN (7-17) mg/dL Creatinine (0.52-1.04) mg/dL Est GFR (CKD-EPI)AfAm (>60 ml/min/1.73 sqM) Est GFR (CKD-EPI)NonAf (>60 ml/min/1.73 sqM) Glucose (74-99) mg/dL Calcium (8.4-10.2) mg/dL Magnesium (1.6-2.3) mg/dL Total Bilirubin (0.2-1.3) mg/dL AST (14-36) U/L ALT (4-34) U/L Alkaline Phosphatase (38-126) U/L Troponin I (0.000-0.034) ng/mL Total Protein (6.3-8.2) g/dL Albumin (3.5-5.0) g/dL Disposition Clinical Impression: Anemia, Dysfunctional uterine bleeding, Syncope Disposition: ADMITTED IP TO THIS HOSP Is patient prescribed a controlled substance at d/c from ED?: No Referrals: Marie Dubon MD [Primary Care Provider] - 1-2 days Time of Disposition: 15:33
[2022-01-02 14:18] LABS: Anisocytosis Slight; Basophils % (A) 0 %; Eosinophils # (A) 0.4 k/uL (0-0.7); Eosinophils % (A) 6 %; HCT 24.1 % (34.0-46.0); HGB 7.5 gm/dL (11.4-16.0); Hypochromasia Marked; Lymphocytes # (A) 0.4 k/uL (1.0-4.8); Lymphocytes % (A) 5 %; MCH 25.3 pg (25.0-35.0); MCHC 31.2 g/dL (31.0-37.0); MCV 81.2 fL (80.0-100.0); Mean Platelet Volume 7.7; Microcytosis Slight; Monocytes # (A) 0.2 k/uL (0-1.0); Monocytes % (A) 3 %; Neutrophils # (A) 5.8 k/uL (1.3-7.7); Neutrophils % (A) 85 %; Platelet Count 154 k/uL (150-450); Poikilocytosis Slight; RBC 2.96 m/uL (3.80-5.40); RDW 19.5 % (11.5-15.5); WBC 6.8 k/uL (3.8-10.6)
[2022-01-02 14:29] LABS: Albumin 3.9 g/dL (3.5-5.0); Calcium 8.9 mg/dL (8.4-10.2); Magnesium 1.8 mg/dL (1.6-2.3); Potassium 3.4 mmol/L (3.5-5.1); Total Bilirubin 0.2 mg/dL (0.2-1.3); Total Protein 6.7 g/dL (6.3-8.2)
--- NOTE | 2022-01-02 14:34 | XR ---
EXAMINATION TYPE: XR chest 2V DATE OF EXAM: 01/02/2022 COMPARISON: 12/08/2021 TECHNIQUE: PA and lateral views submitted. HISTORY: Syncope FINDINGS: The lungs are clear and there is no pneumothorax, pleural effusion, or focal pneumonia. Heart size mildly prominent and there is a metallic device overlying the left cardiac border. Hypertrophic and d egenerative changes of the spine. No evidence of overt failure. IMPRESSION: 1. No acute process. Correlate for cardiomegaly.
[2022-01-02 15:20] LABS: INR 0.9 (<1.2); Partial Thromboplastin Time 23.1 sec (22.0-30.0); Prothrombin Time 10.3 sec (9.0-12.0)
[2022-01-02] MEDS ORDERED: NALOXONE 0.4 MG/ML 1 ML VIAL IV PRN (15:43)
[2022-01-02 16:59] LABS: Appearance,Urine Cloudy (Clear); Bilirubin,Urine Negative (Negative); Blood,Urine Large (Negative); Budding Yeast,Urine Moderate /hpf; Color,Urine Red; Glucose,Urine (UA) Negative (Negative); Ketones,Urine Negative (Negative); Leukocyte Esterase,Urine Moderate (Negative); Nitrite,Urine Negative (Negative); PH, Urine 5.5 (5.0-8.0); Protein,Urine 2+ (Negative); RBC,Urine >182 /hpf (0-5); Specific Gravity,Urine 1.019 (1.001-1.035); Urobilinogen,Urine <2.0 mg/dL (<2.0); WBC,Urine 153 /hpf (0-5)
--- NOTE | 2022-01-02 17:06 | P.OBCN ---
History of Present Illness Consult date: 01/02/22 Reason for consult: other (Vaginal bleeding, known endometrial CA ) Chief complaint: Vaginal bleeding, status post syncopal episode History of present illness: This is a 52-year-old female with diagnosis of endometrial cancer treated with radiation patient was seen by myself multiple months ago and diagnosed with endometrial cancer patient subsequently saw [facility] oncologist Dr. Dumont. She wasnt deemed to be a good surgical candidate and was started on megace, and radiation treatment was begun. Upon discussion with her daughter she states she receives radiation treatment Sunday through Sunday. Patient states last week around Sunday or Sunday her bleeding increased and became worse today. Patient states she is feeling every 2 hours. Patient was seen Primary care and a syncopal episode was noted she then been presented to the emergency department. Review of Systems Constitutional: Denies chills, Denies fatigue, Denies fever Ears, nose, mouth and throat: Denies headache Cardiovascular: Denies chest pain Respiratory: Denies dyspnea Genitourinary: Denies Menstruation: Reports as per HPI, Reports postmenopausal Past Medical History Past Medical History: Cancer, Diabetes Mellitus, Hypertension Additional Past Medical History / Comment(s): PER PATIENT'S DTR- CVA AROUND 09/2021 AND WENT TO [facility], SPEECH APPEARS SLIGHTLY SLURRED, uterine ca History of Any Multi-Drug Resistant Organisms: None Reported Past Surgical History: No Surgical Hx Reported Past Psychological History: No Psychological Hx Reported Smoking Status: Current every day smoker Past Alcohol Use History: None Reported Past Drug Use History: None Reported - Past Family History family Family Medical History: No Reported History Medications and Allergies Home Medications Medication Instructions Recorded Confirmed Type Atorvastatin Calcium [Lipitor] 40 mg PO HS 11/08/21 01/02/22 History Insulin Glargine [Lantus Vial] 15 units SQ HS 11/08/21 01/02/22 History Losartan [Cozaar] 50 mg PO BID 11/08/21 01/02/22 History Pantoprazole Sodium [Protonix] 40 mg PO DAILY 11/08/21 01/02/22 History Ferrous Sulfate [Iron (65 MG 325 mg PO DAILY #30 tab 11/09/21 01/02/22 Rx Elemental)] Megestrol [Megace] 800 mg PO DAILY 12/08/21 01/02/22 History Metoprolol Succinate (ER) [Toprol 50 mg PO DAILY 12/08/21 01/02/22 History XL] Chlorthalidone 25 mg PO DAILY #30 tab 12/11/21 01/02/22 Rx Clopidogrel [Plavix] 75 mg PO DAILY #30 tab 12/11/21 01/02/22 Rx Allergies Allergy/AdvReac Type Severity Reaction Status Date / Time No Known Allergies Allergy Verified 01/02/22 15:03 Exam Osteopathic Statement: *. No significant issues noted on an osteopathic structural exam other than those noted in the History and Physical/Consult. Vital Signs Temp Pulse Resp BP Pulse Ox 01/02/22 15:11 73 20 147/95 100 01/02/22 12:30 97.9 F 78 20 142/90 100 Intake and Output 01/02/22 01/02/22 01/02/22 06:59 14:59 22:59 Other: Weight 90.718 kg Targeted physical exam was performed and state in general this a well-nourished well-developed -[place] female in no acute distress, breathing is noted to be nonlabored, heart has regular rhythm, abdomen is soft and nontender Vaginal exam is deferred. Results Result Diagrams: 01/02/22 12:48 01/02/22 12:48 Abnormal Lab Results - Last 24 Hours (Table) 01/02/22 01/02/22 01/02/22 Range/Units 12:48 12:48 12:48 RBC 2.96 L (3.80-5.40) m/uL Hgb 7.5 L (11.4-16.0) gm/dL Hct 24.1 L (34.0-46.0) % RDW 19.5 H (11.5-15.5) % Lymphocytes # 0.4 L (1.0-4.8) k/uL Potassium 3.4 L (3.5-5.1) mmol/L Chloride 108 H (98-107) mmol/L Carbon Dioxide 21 L (22-30) mmol/L BUN 20 H (7-17) mg/dL Creatinine 1.19 H (0.52-1.04) mg/dL Glucose 110 H (74-99) mg/dL Urine Appearance Cloudy H (Clear) Urine Protein 2+ H (Negative) Urine Blood Large H (Negative) Ur Leukocyte Esterase Moderate H (Negative) Urine RBC >182 H (0-5) /hpf Urine WBC 153 H (0-5) /hpf Urine WBC Clumps Occasional H (None) /hpf Urine Yeast (Budding) Moderate H (None) /hpf Assessment and Plan (1) Endometrial cancer Current Visit: Yes Status: Acute Code(s): C54.1 - MALIGNANT NEOPLASM OF ENDOMETRIUM SNOMED Code(s): 172596779 (2) Anemia Current Visit: Yes Status: Acute Code(s): D64.9 - ANEMIA, UNSPECIFIED SNOMED Code(s): 142876929 (3) Syncope Current Visit: Yes Status: Acute Code(s): R55 - SYNCOPE AND COLLAPSE SNOMED Code(s): 357226048 Plan: 52-year-old female with known endometrial cancer presents status post syncopal episode primary care. Patient found to be anemic most likely secondary to increased vaginal bleeding from known endometrial cancer. Patient has seen in [facility] oncology in the past, she is currently undergoing radiation treatment for her endometrial cancer. Dr Dumont ( nursing scheduler/onc) was contacted awaiting response. Discussed with patient there is little I can offer her given her known diagnosis from a general nursing scheduler standpoint. Did recommend 1 unit of packed red blood cells. Patient currently appears stable, alert and oriented. Discussion with her daughter via phone regarding her plan of care. Patient and daughter denied questions and states understanding. I will follow along and add any further recommendations pending recommendations from [facility] oncology. could consider transfer to facility with [facility] oncology services.
--- NOTE | 2022-01-02 18:51 | HP ---
HISTORY AND PHYSICAL DATE OF SERVICE: 01/02/2022 CHIEF COMPLAINTS: Syncope and weakness and anemia. HISTORY OF PRESENT ILLNESS: This 61-year-old woman with a past medical history of diabetes mellitus and hypertension was recently diagnosed with uterine cancer. The patient received radiation therapy with Dr. Padilla. The patient apparently had a syncopal episode and had continued vaginal bleeding; patient had to change her pad approximately every two hours. The patient's hemoglobin was found to be 7.5. A unit of transfusion is being arranged. The patient is admitted for further evaluation and treatment. The patient has also seen Dr. Boykin as well as Dr. Padilla. She is followed by Dr. Marie Dubon in the outpatient setting. PAST MEDICAL HISTORY: Reviewed. It includes diabetes mellitus, hypertension, uterine cancer. MEDICATIONS: Home medications are reviewed and include Protonix. Doses and the rest of the medications are reviewed. ALLERGIES: NONE. FAMILY HISTORY: No history of heart disease or strokes in the family. SOCIAL HISTORY: History of smoking. REVIEW OF SYSTEMS: Fourteen-point review of systems negative except as mentioned earlier. PHYSICAL EXAMINATION: Pulse 73, blood pressure 147/95, respiration 20. HEENT: Conjunctivae severely pale. Oral mucosa is pale. NECK: No jugular venous distention. CARDIOVASCULAR: S1, S2 muffled. RESPIRATION: Breath sounds diminished at the bases. No rhonchi. No crackles. ABDOMEN: Soft. Mild discomfort in the lower part of the abdomen. LEGS: No edema. No swelling. NERVOUS SYSTEM: Moves all 4 limbs. No focal deficit. SKIN: No ulcer, rash, bleeding. JOINTS: No active deforming arthropathy. LABS: Reviewed. Hemoglobin is 7.5. Other labs are noted. ASSESSMENT: 1. Acute lower genitourinary bleeding with acute blood-loss anemia, symptomatic. 2. Uterine cancer. 3. Diabetes mellitus. 4. Hypertension. RECOMMENDATIONS AND DISCUSSION: In this 61-year-old woman who presented with multiple complex medical issues, we will monitor the patient closely. I would recommend a unit of transfusion and continue to monitor. Replace potassium. Monitor renal functions. OB./[employer]OFESSION[employer] and radiation/oncology consultations. Prognosis guarded. Further recommendations to follow. MMODL / IJN: [id number] /
[2022-01-02 22:38] LABS: Glucose,Whole Blood 120 mg/dL (70-110)
[2022-01-02] MEDS: INSULIN DETEMIR (LEVEMIR) 100 UNIT/ML SYR SQ SCH (23:15)
[2022-01-02] MEDS: SODIUM CHLORIDE 0.9% 1,000 ML IV SCH (23:15)
[2022-01-02] MEDS: ATORVASTATIN 40 MG TAB PO SCH (23:15)
[2022-01-02] MEDS: LOSARTAN 50 MG TAB PO SCH (23:15)
[2022-01-03] MEDS: SODIUM CHLORIDE 0.9% 1,000 ML IV SCH ×2 (06:19→19:21)
[2022-01-03 07:05] LABS: Glucose,Whole Blood 112 mg/dL (70-110)
[2022-01-03] MEDS: FERROUS SULFATE 325 MG TAB PO SCH (09:32)
[2022-01-03] MEDS: METOPROLOL SUCCINATE (ER) 50 MG TAB.ER.24H PO SCH (09:32)
[2022-01-03] MEDS: LOSARTAN 50 MG TAB PO SCH ×2 (09:32→20:55)
[2022-01-03] MEDS: CHLORTHALIDONE 25 MG TAB PO SCH (09:32)
[2022-01-03] MEDS: PANTOPRAZOLE 40 MG TABLET PO SCH (09:32)
[2022-01-03] MEDS: MEGESTROL 400 MG/10 ML CUP PO SCH (09:33)
[2022-01-03 11:11] LABS: Basophils # (A) 0.02 X 10*3/uL (0.00-0.10); Basophils % (A) 0.3 %; HGB 7.3 g/dL (12.0-15.0); Immature Grans, Automated 0.3 %; Lymphocytes % (A) 5.6 %; MCH 23.9 pg (27.0-32.0); MCHC 30.4 g/dL (32.0-37.0); MCV 78.7 fL (80.0-97.0); Mean Platelet Volume 10.9 fL (9.5-12.2); Monocytes # (A) 0.42 X 10*3/uL (0.20-1.00); Monocytes % (A) 5.9 %; NRBC Per 100 WBC 0 /100 WBCS (0.0-0.0); Neutrophils # (A) 5.74 X 10*3/uL (1.80-7.70); Neutrophils % (A) 80.9 %; Platelet Count 231 X 10*3/uL (140-440); RBC 3.05 X 10*6/uL (4.10-5.20); RDW 17.9 % (11.5-14.5)
[2022-01-03 11:16] LABS: Glucose,Whole Blood 167 mg/dL (70-110)
[2022-01-03 11:17] LABS: African American GFR (CKD) 66.6 (60.0-200.0); Anion Gap 11.5 mmol/L (10.00-18.00); BUN/Creat Ratio 16.6 Ratio (12.00-20.00); Blood Urea Nitrogen 17.6 mg/dL (9.0-27.0); Calcium 8.7 mg/dL (8.7-10.3); Carbon Dioxide 20.4 mmol/L (20.0-27.5); Non-African American GFR(CKD) 57.4 (60.0-200.0); Potassium 3.6 mmol/L (3.5-5.5)
--- NOTE | 2022-01-03 12:52 | P.PN ---
Subjective Progress Note Date: 01/03/22 Principal diagnosis: Stage II endometrial cancer, vaginal bleeding, anemia Patient states her bleeding has been stable overnight about the same no change. Patient is status post 1 unit of packed red blood cells. I did speak with [facility] oncology overnight, no changes in plan of care as she is a poor surgical candidate. He is questioning coagulation studies, and agrees with transfusion. Patient stated no real change in plan of care, Dr. Padilla from [facility] was consulted in addition. He has been managing her radiation palliative therapy. He states she has been doing regular radiation treatments. He is willing to do a treatment today as she is feeling well overall. Objective - Vital Signs Vital signs: Vital Signs Temp 98.5 F 01/03/22 11:49 Pulse 76 01/03/22 11:49 Resp 15 01/03/22 11:49 BP 149/92 01/03/22 11:49 Pulse Ox 100 01/03/22 11:49 FiO2 Intake & Output 01/02/22 01/03/22 01/03/22 18:59 06:59 18:59 Intake Total 0 710 Output Total 0 Balance 0 710 Weight 90.718 kg Intake: Oral 400 Blood Product 0 310 Rc As-1 Unit 0 310 [id number] Output: Stool 0 Other: Voiding Method Toilet # Voids 2 # Bowel Movements 1 - Constitutional General appearance: Present: average body habitus, cooperative, no acute distress - Labs CBC & Chem 7: 01/03/22 06:57 01/03/22 06:57 Labs: Abnormal Lab Results - Last 24 Hours (Table) 01/02/22 01/02/22 01/02/22 Range/Units 12:48 12:48 12:48 RBC 2.96 L (3.80-5.40) m/uL Hgb 7.5 L (11.4-16.0) gm/dL Hct 24.1 L (34.0-46.0) % MCV (80.0-97.0) fL MCH (27.0-32.0) pg MCHC (32.0-37.0) g/dL RDW 19.5 H (11.5-15.5) % Lymphocytes # 0.4 L (1.0-4.8) k/uL Eosinophils # (0.04-0.35) X 10*3/uL Potassium 3.4 L (3.5-5.1) mmol/L Chloride 108 H (98-107) mmol/L Carbon Dioxide 21 L (22-30) mmol/L BUN 20 H (7-17) mg/dL Creatinine 1.19 H (0.52-1.04) mg/dL Est GFR (CKD-EPI)NonAf (60.0-200.0) Glucose 110 H (74-99) mg/dL POC Glucose (mg/dL) (70-110) mg/dL Urine Appearance Cloudy H (Clear) Urine Protein 2+ H (Negative) Urine Blood Large H (Negative) Ur Leukocyte Esterase Moderate H (Negative) Urine RBC >182 H (0-5) /hpf Urine WBC 153 H (0-5) /hpf Urine WBC Clumps Occasional H (None) /hpf Urine Yeast (Budding) Moderate H (None) /hpf Crossmatch 01/02/22 01/02/22 01/03/22 Range/Units 16:06 22:36 06:57 RBC 3.05 L (3.80-5.40) m/uL Hgb 7.3 L (11.4-16.0) gm/dL Hct 24.0 L (34.0-46.0) % MCV 78.7 L (80.0-97.0) fL MCH 23.9 L (27.0-32.0) pg MCHC 30.4 L (32.0-37.0) g/dL RDW 17.9 H (11.5-15.5) % Lymphocytes # 0.40 L (1.0-4.8) k/uL Eosinophils # 0.50 H (0.04-0.35) X 10*3/uL Potassium (3.5-5.1) mmol/L Chloride (98-107) mmol/L Carbon Dioxide (22-30) mmol/L BUN (7-17) mg/dL Creatinine (0.52-1.04) mg/dL Est GFR (CKD-EPI)NonAf (60.0-200.0) Glucose (74-99) mg/dL POC Glucose (mg/dL) 120 H (70-110) mg/dL Urine Appearance (Clear) Urine Protein (Negative) Urine Blood (Negative) Ur Leukocyte Esterase (Negative) Urine RBC (0-5) /hpf Urine WBC (0-5) /hpf Urine WBC Clumps (None) /hpf Urine Yeast (Budding) (None) /hpf Crossmatch See Detail 01/03/22 01/03/22 01/03/22 Range/Units 06:57 07:04 11:14 RBC (3.80-5.40) m/uL Hgb (11.4-16.0) gm/dL Hct (34.0-46.0) % MCV (80.0-97.0) fL MCH (27.0-32.0) pg MCHC (32.0-37.0) g/dL RDW (11.5-15.5) % Lymphocytes # (1.0-4.8) k/uL Eosinophils # (0.04-0.35) X 10*3/uL Potassium (3.5-5.1) mmol/L Chloride (98-107) mmol/L Carbon Dioxide (22-30) mmol/L BUN (7-17) mg/dL Creatinine (0.52-1.04) mg/dL Est GFR (CKD-EPI)NonAf 57.4 L (60.0-200.0) Glucose (74-99) mg/dL POC Glucose (mg/dL) 112 H 167 H (70-110) mg/dL Urine Appearance (Clear) Urine Protein (Negative) Urine Blood (Negative) Ur Leukocyte Esterase (Negative) Urine RBC (0-5) /hpf Urine WBC (0-5) /hpf Urine WBC Clumps (None) /hpf Urine Yeast (Budding) (None) /hpf Crossmatch Assessment and Plan (1) Endometrial cancer Current Visit: Yes Status: Acute Code(s): C54.1 - MALIGNANT NEOPLASM OF ENDOMETRIUM SNOMED Code(s): 800442221 (2) Anemia Current Visit: Yes Status: Acute Code(s): D64.9 - ANEMIA, UNSPECIFIED SNOMED Code(s): 559636566 (3) Syncope Current Visit: Yes Status: Acute Code(s): R55 - SYNCOPE AND COLLAPSE SNOMED Code(s): 969933537 Plan: Patient is doing well overall this morning. Awaiting transfusion. CBC is stable this morning. Case was discussed with Dr. Padilla at the bedside. He was in to discuss current plan of care including radiation treatment today. Continue discussion with [facility] oncologyDr. Abigailibilich with no changes in care, he states he is available for transfer of patient to his facility given [facility] oncology service is available there, if this becomes necessary. I do believe there is minimal I can offer this patient given her diagnosis and disease process. Should bleeding increase or have no change with radiation treatment, would recommend transfer to facility with [facility] [facility] oncology services.
--- NOTE | 2022-01-03 15:11 | P.PN ---
Subjective Progress Note Date: 01/03/22 This is a 61-year-old female who was recently admitted with recently diagnosed uterine cancer and follows with radiation oncology Dr. Padilla in the outpatient setting. Patient apparently had a syncopal episode and continues with vaginal bleeding and is being closely monitored. Gynecology service is consulted recommending gynecology registration scheduling specialist and will also consult medical oncology and appreciate input and recommendations. Patient reports she continues to have vaginal bleeding and hemoglobin today is 7.3 and schedule her receive another unit of PRBC. Additional iron studies being ordered and also awaiting on neurology evaluation as patient recently had a TIA and placed on Plavix which is currently on hold. Neurology consulted and pending at this time. Patient denies any further episodes of loss of consciousness or dizziness and is asking when she can go home. Patient is currently afebrile denies any nausea or vomiting and denies chest pain or shortness of breath. Review of systems: Constitutional: No reports of fatigue, no reports of fever, or chills Cardiovascular: No reports of chest pain or palpitations Respiratory: No reports of shortness of breath or cough GI: No reports of nausea, no reports of of vomiting, no reports of diarrhea : No reports of dysuria or retention, reports continued vaginal bleeding Neurovascular: No reports of generalized weakness All medications have been reviewed PHYSICAL EXAMINATION: GENERAL: The patient is alert and oriented x3, Well developed, well nourished. Appears much older than stated age Obese. HEENT: Pupils are round and equally reacting to light. EOMI. no scleral icterus. conjunctival pallor noted. Normocephalic, atraumatic. No pharyngeal erythema. No thyromegaly. Oral mucosa is pale CARDIOVASCULAR: S1 and S2 muffled PULMONARY: diminished breath sounds bilaterally with no wheezing or rhonchi noted. ABDOMEN: soft. Nontender on exam. obese. non-distended, normoactive bowel sounds. No palpable organomegaly. MUSCULOSKELETAL: No joint swelling or deformity. EXTREMITIES: No cyanosis, clubbing, or pedal edema. NEUROLOGICAL: Gross neurological examination did not reveal any focal deficits. SKIN: No rashes. Assessment: Acute lower genitourinary bleeding with acute blood loss anemia, symptomatic Presyncope, possibly secondary to above Uterine cancer Diabetes mellitus Hypertension GI prophylaxis DVT prophylaxis Full code Plan: Recommend to continue with current medications and management with gynecology, radiation oncology, and med oncology consulted. Gynecology evaluated the patient recommending gynecological oncologist specialist for evaluation. Awaiting radiation oncology evaluation and also neurology evaluation as patient apparently was at [facility] for a recent TIA diagnosis and was placed on Plavix and having continuing vaginal bleeding. Hemoglobin is 7.3 today and awaiting to receive a unit of PRBC for a total of 2 units this admission. Patient reports to continued vaginal bleeding and denies any feelings of dizziness, lightheadedness, or shortness of breath. Patient is extremely anxious and wants to go home. Plavix is currently on hold and awaiting neurology evaluation. Recommend repeat labs in the morning and monitor hemoglobin closely and transfuse of 7 or less. Iron studies being ordered and pending at this time. Recommend continue monitoring Accu-Cheks before meals and at bedtime and continue with home medication of long-acting and will add sliding scale if blood sugars are elevated. Due to multiple complex medical issues, prognosis is guarded. The impression and plan of care has been dictated by Mikayla Bain, nurse practitioner as directed. MD Isabel I have performed a history and examination and MDM of this patient, discussed the same with the dictator, and agree with the dictator's assessment and plan as written ,documented as a scribe. Based on total visit time, I have performed more than 50% of the visit. Any additional findings or plans will be noted. Objective - Vital Signs Vital signs: Vital Signs Temp 98.5 F 01/03/22 11:49 Pulse 76 01/03/22 11:49 Resp 15 01/03/22 11:49 BP 149/92 01/03/22 11:49 Pulse Ox 100 01/03/22 11:49 FiO2 Intake & Output 01/02/22 01/03/22 01/03/22 18:59 06:59 18:59 Intake Total 0 710 Output Total 0 Balance 0 710 Weight 90.718 kg Intake: Oral 400 Blood Product 0 310 Rc As-1 Unit 0 310 [id number] Output: Stool 0 Other: Voiding Method Toilet # Voids 2 # Bowel Movements 1 - Labs CBC & Chem 7: 01/03/22 06:57 01/03/22 06:57 Labs: Abnormal Lab Results - Last 24 Hours (Table) 01/02/22 01/02/22 01/02/22 Range/Units 12:48 12:48 12:48 RBC 2.96 L (3.80-5.40) m/uL Hgb 7.5 L (11.4-16.0) gm/dL Hct 24.1 L (34.0-46.0) % MCV (80.0-97.0) fL MCH (27.0-32.0) pg MCHC (32.0-37.0) g/dL RDW 19.5 H (11.5-15.5) % Lymphocytes # 0.4 L (1.0-4.8) k/uL Eosinophils # (0.04-0.35) X 10*3/uL Potassium 3.4 L (3.5-5.1) mmol/L Chloride 108 H (98-107) mmol/L Carbon Dioxide 21 L (22-30) mmol/L BUN 20 H (7-17) mg/dL Creatinine 1.19 H (0.52-1.04) mg/dL Est GFR (CKD-EPI)NonAf (60.0-200.0) Glucose 110 H (74-99) mg/dL POC Glucose (mg/dL) (70-110) mg/dL Urine Appearance Cloudy H (Clear) Urine Protein 2+ H (Negative) Urine Blood Large H (Negative) Ur Leukocyte Esterase Moderate H (Negative) Urine RBC >182 H (0-5) /hpf Urine WBC 153 H (0-5) /hpf Urine WBC Clumps Occasional H (None) /hpf Urine Yeast (Budding) Moderate H (None) /hpf Crossmatch 01/02/22 01/02/22 01/03/22 Range/Units 16:06 22:36 06:57 RBC 3.05 L (3.80-5.40) m/uL Hgb 7.3 L (11.4-16.0) gm/dL Hct 24.0 L (34.0-46.0) % MCV 78.7 L (80.0-97.0) fL MCH 23.9 L (27.0-32.0) pg MCHC 30.4 L (32.0-37.0) g/dL RDW 17.9 H (11.5-15.5) % Lymphocytes # 0.40 L (1.0-4.8) k/uL Eosinophils # 0.50 H (0.04-0.35) X 10*3/uL Potassium (3.5-5.1) mmol/L Chloride (98-107) mmol/L Carbon Dioxide (22-30) mmol/L BUN (7-17) mg/dL Creatinine (0.52-1.04) mg/dL Est GFR (CKD-EPI)NonAf (60.0-200.0) Glucose (74-99) mg/dL POC Glucose (mg/dL) 120 H (70-110) mg/dL Urine Appearance (Clear) Urine Protein (Negative) Urine Blood (Negative) Ur Leukocyte Esterase (Negative) Urine RBC (0-5) /hpf Urine WBC (0-5) /hpf Urine WBC Clumps (None) /hpf Urine Yeast (Budding) (None) /hpf Crossmatch See Detail 01/03/22 01/03/22 01/03/22 Range/Units 06:57 07:04 11:14 RBC (3.80-5.40) m/uL Hgb (11.4-16.0) gm/dL Hct (34.0-46.0) % MCV (80.0-97.0) fL MCH (27.0-32.0) pg MCHC (32.0-37.0) g/dL RDW (11.5-15.5) % Lymphocytes # (1.0-4.8) k/uL Eosinophils # (0.04-0.35) X 10*3/uL Potassium (3.5-5.1) mmol/L Chloride (98-107) mmol/L Carbon Dioxide (22-30) mmol/L BUN (7-17) mg/dL Creatinine (0.52-1.04) mg/dL Est GFR (CKD-EPI)NonAf 57.4 L (60.0-200.0) Glucose (74-99) mg/dL POC Glucose (mg/dL) 112 H 167 H (70-110) mg/dL Urine Appearance (Clear) Urine Protein (Negative) Urine Blood (Negative) Ur Leukocyte Esterase (Negative) Urine RBC (0-5) /hpf Urine WBC (0-5) /hpf Urine WBC Clumps (None) /hpf Urine Yeast (Budding) (None) /hpf Crossmatch
--- NOTE | 2022-01-03 15:12 | P.CONS ---
History of Present Illness - Reason for Consult Consult date: 01/03/22 Endometrial carcinoma, bleeding Requesting physician: Judson Arriola - Chief Complaint Vaginal bleeding - History of Present Illness Mrs. Reis is a very pleasant 61-year-old female we have been asked to see regarding endometrial cancer and bleeding. Patient is followed by [employer] oncologist Dr. Felton [facility]. She has been being treated with Megace and radiation. She does see Dr. Padilla Radiation Oncologist. Patient states that she is still on treatment. Bleeding started a couple of days ago, it is persistent, not progressive, she states bleeding through about 2 pads an hour. She denies fevers, nausea, vomiting, she is very hungry actually right now, no c hest pain, shortness of breath on exertion, abdominal pain or cramping, she denies dysuria, hematuria, black or bloody stool. No acute changes in the consistency of her stool. No pain with defecation. She is ambulatory. Patient reports that her speech has always been "slow", she denies any residual effects from a recent TIA. Discussed with RO-current XRT, specifically for vaginal bleeding. Opted for radiation 1st to try and stop bleeding before pursuing surgery. Patient does have a history of multiple strokes and was on Plavix. Plavix was held and radiation started immediately to try and control bleeding. Initially, the bleeding didn't cease. It is now returned. Not sure the last time patient followed up with her Neurologist-patient is not able to tell me either. Recommendation is that if vaginal bleeding is unable to be controlled patient be transferred to [facility] Onc for surgery. Review of Systems 10 point review of systems is negative except as stated in HPI Past Medical History Past Medical History: Cancer, Diabetes Mellitus, Hypertension Additional Past Medical History / Comment(s): PER PATIENT'S DTR- CVA AROUND 09/2021 AND WENT TO [facility], SPEECH APPEARS SLIGHTLY SLURRED, uterine ca Patient is undergoing radiation M-F at [facility] with about a week to go; will undergo more radiation later. History of Any Multi-Drug Resistant Organisms: None Reported Past Surgical History: No Surgical Hx Reported Additional Past Surgical History / Comment(s): D&C, cardiac loop recorder implanted last month Past Anesthesia/Blood Transfusion Reactions: No Reported Reaction Past Psychological History: No Psychological Hx Reported Smoking Status: Current every day smoker Past Alcohol Use History: None Reported Past Drug Use History: None Reported - Past Family History family Family Medical History: No Reported History Medications and Allergies Home Medications Medication Instructions Recorded Confirmed Type Atorvastatin Calcium [Lipitor] 40 mg PO HS 11/08/21 01/02/22 History Insulin Glargine [Lantus Vial] 15 units SQ HS 11/08/21 01/02/22 History Losartan [Cozaar] 50 mg PO BID 11/08/21 01/02/22 History Pantoprazole Sodium [Protonix] 40 mg PO DAILY 11/08/21 01/02/22 History Ferrous Sulfate [Iron (65 MG 325 mg PO DAILY #30 tab 11/09/21 01/02/22 Rx Elemental)] Megestrol [Megace] 800 mg PO DAILY 12/08/21 01/02/22 History Metoprolol Succinate (ER) [Toprol 50 mg PO DAILY 12/08/21 01/02/22 History XL] Chlorthalidone 25 mg PO DAILY #30 tab 12/11/21 01/02/22 Rx Clopidogrel [Plavix] 75 mg PO DAILY #30 tab 12/11/21 01/02/22 Rx Allergies Allergy/AdvReac Type Severity Reaction Status Date / Time No Known Allergies Allergy Verified 01/02/22 15:03 Physical Exam Vitals: Vital Signs Temp Pulse Pulse Pulse Resp BP BP 01/03/22 14:41 97.9 F 74 20 164/75 01/03/22 11:49 98.5 F 76 15 149/92 01/03/22 05:03 97.9 F 87 18 134/85 01/02/22 22:15 98.7 F 79 18 147/85 01/02/22 21:26 98.8 F 80 16 140/71 01/02/22 20:32 76 16 131/64 01/02/22 20:00 79 18 01/02/22 19:14 74 16 131/74 01/02/22 18:44 98.2 F 78 20 128/67 01/02/22 18:34 97.9 F 101 H 20 136/98 01/02/22 15:11 73 20 147/95 Pulse Ox 01/03/22 14:41 100 01/03/22 11:49 100 01/03/22 05:03 100 01/02/22 22:15 99 01/02/22 21:26 100 01/02/22 20:32 100 01/02/22 20:00 01/02/22 19:14 100 01/02/22 18:44 100 01/02/22 18:34 100 01/02/22 15:11 100 Intake and Output 01/02/22 01/03/22 01/03/22 22:59 06:59 14:59 Intake Total 310 400 0 Output Total 0 Balance 310 400 0 Intake: Oral 400 Blood Product 310 0 Rc As-1 Unit 0 [id number] Rc As-1 Unit 310 [id number] Output: Stool 0 Other: Voiding Method Toilet # Voids 0 2 # Bowel Movements 1 - Constitutional General appearance: average body habitus, cooperative, no acute distress - EENT Eyes: anicteric sclerae, EOMI, poor dentition ENT: hearing grossly normal - Neck Neck: no lymphadenopathy - Respiratory Respiratory: bilateral: CTA - Cardiovascular Rhythm: regular Heart sounds: normal: S1, S2 Abnormal Heart Sounds: no systolic murmur, no diastolic murmur, no rub, no S3 Gallop, no S4 Gallop, no click, no other leg Peripheral Edema: bilateral: None - Gastrointestinal General gastrointestinal: no absent bowel sounds, no decreased bowel sounds, no distended, no hepatomegaly, no hyperactive bowel sounds, normal bowel sounds, no organomegaly, no rigid, no scaphoid, soft, no splenomegaly, no tenderness, no umbilical hernia, no ventral hernia - Neurologic Neurologic: CNII-XII intact (Grossly) - Musculoskeletal Musculoskeletal: strength equal bilaterally - Psychiatric Psychiatric: A&O x's 3, appropriate affect, intact judgment & insight Results CBC & Chem 7: 01/03/22 06:57 01/03/22 06:57 Labs: Abnormal Lab Results - Last 24 Hours (Table) 01/02/22 01/02/22 01/02/22 Range/Units 12:48 16:06 22:36 RBC (4.10-5.20) X 10*6/uL Hgb (12.0-15.0) g/dL Hct (37.2-46.3) % MCV (80.0-97.0) fL MCH (27.0-32.0) pg MCHC (32.0-37.0) g/dL RDW (11.5-14.5) % Lymphocytes # (0.90-5.00) X 10*3/uL Eosinophils # (0.04-0.35) X 10*3/uL Est GFR (CKD-EPI)NonAf (60.0-200.0) POC Glucose (mg/dL) 120 H (70-110) mg/dL Urine Appearance Cloudy H (Clear) Urine Protein 2+ H (Negative) Urine Blood Large H (Negative) Ur Leukocyte Esterase Moderate H (Negative) Urine RBC >182 H (0-5) /hpf Urine WBC 153 H (0-5) /hpf Urine WBC Clumps Occasional H (None) /hpf Urine Yeast (Budding) Moderate H (None) /hpf Crossmatch See Detail 01/03/22 01/03/22 01/03/22 Range/Units 06:57 06:57 07:04 RBC 3.05 L (4.10-5.20) X 10*6/uL Hgb 7.3 L (12.0-15.0) g/dL Hct 24.0 L (37.2-46.3) % MCV 78.7 L (80.0-97.0) fL MCH 23.9 L (27.0-32.0) pg MCHC 30.4 L (32.0-37.0) g/dL RDW 17.9 H (11.5-14.5) % Lymphocytes # 0.40 L (0.90-5.00) X 10*3/uL Eosinophils # 0.50 H (0.04-0.35) X 10*3/uL Est GFR (CKD-EPI)NonAf 57.4 L (60.0-200.0) POC Glucose (mg/dL) 112 H (70-110) mg/dL Urine Appearance (Clear) Urine Protein (Negative) Urine Blood (Negative) Ur Leukocyte Esterase (Negative) Urine RBC (0-5) /hpf Urine WBC (0-5) /hpf Urine WBC Clumps (None) /hpf Urine Yeast (Budding) (None) /hpf Crossmatch 01/03/22 Range/Units 11:14 RBC (4.10-5.20) X 10*6/uL Hgb (12.0-15.0) g/dL Hct (37.2-46.3) % MCV (80.0-97.0) fL MCH (27.0-32.0) pg MCHC (32.0-37.0) g/dL RDW (11.5-14.5) % Lymphocytes # (0.90-5.00) X 10*3/uL Eosinophils # (0.04-0.35) X 10*3/uL Est GFR (CKD-EPI)NonAf (60.0-200.0) POC Glucose (mg/dL) 167 H (70-110) mg/dL Urine Appearance (Clear) Urine Protein (Negative) Urine Blood (Negative) Ur Leukocyte Esterase (Negative) Urine RBC (0-5) /hpf Urine WBC (0-5) /hpf Urine WBC Clumps (None) /hpf Urine Yeast (Budding) (None) /hpf Crossmatch Chest x-ray: report reviewed Assessment and Plan (1) Dysfunctional uterine bleeding Current Visit: Yes Status: Acute Priority: High Code(s): N93.8 - OTHER SPECIFIED ABNORMAL UTERINE AND VAGINAL BLEEDING SNOMED Code(s): 97129971472906 (2) Endometrial cancer Current Visit: Yes Status: Acute Priority: High Code(s): C54.1 - MALIGNANT NEOPLASM OF ENDOMETRIUM SNOMED Code(s): 963997310 (3) TIA (transient ischemic attack) Current Visit: No Status: Chronic Priority: Medium Code(s): G45.9 - TRANSIENT CEREBRAL ISCHEMIC ATTACK, UNSPECIFIED SNOMED Code(s): 538552260 Plan: Discussed with RO-current XRT, specifically for vaginal bleeding. Opted for radiation 1st to try and stop bleeding before pursuing surgery. Patient does have a history of multiple strokes and was on Plavix. Plavix was held and radiation started immediately to try and control bleeding. Initially, the bleeding didn't cease. It is now returned. Not sure the last time patient followed up with her Neurologist-patient is not able to tell me either. Agree with Rad Onc recommendation- if vaginal bleeding is unable to be controlled in the next 24 hours patient should be transferred to [facility] On[facility] for surgery. Transfuse for hemoglobin less than 7 CBC in a.m.
--- NOTE | 2022-01-03 16:31 | P.PN ---
Subjective Progress Note Date: 01/03/22 Principal diagnosis: vaginal bleeding 2/2 uterine cancer On exam today, the patient reports she is feeling fairly normal. She denies feeling lightheaded. She states she has continued to have difficulty with vaginal bleeding. She feels this is largely similar over the past week. She does note urinary frequency, but denies dysuria. She also reports having more frequent bowel movements, but not diarrhea. The patient's hemoglobin was found to be 8.8 on December 27, and now at the time of her admission was found to be 7.5 yesterday and 7.3 today. The patient was transfused one unit of blood overnight. We have continued to hold her blood thinners. Objective - Vital Signs Vital signs: Vital Signs Temp 98.3 F 01/03/22 15:21 Pulse 74 01/03/22 15:21 Resp 18 01/03/22 15:21 BP 148/70 01/03/22 15:21 Pulse Ox 100 01/03/22 15:21 FiO2 Intake & Output 01/02/22 01/03/22 01/03/22 18:59 06:59 18:59 Intake Total 0 710 0 Output Total 0 Balance 0 710 0 Weight 90.718 kg Intake: Oral 400 Blood Product 0 310 0 Rc As-1 Unit 0 [id number] Rc As-1 Unit 0 310 [id number] Output: Stool 0 Other: Voiding Method Toilet # Voids 2 # Bowel Movements 1 - Constitutional General appearance: Present: no acute distress, obese - EENT Eyes: Present: EOMI, PERRLA ENT: Present: hearing grossly normal - Neck Neck: Absent: lymphadenopathy - Respiratory Respiratory: bilateral: CTA - Cardiovascular Rhythm: regular - Gastrointestinal General gastrointestinal: Absent: distended, tenderness - Genitourinary Genitourinary Comment(s): On speculum exam, there is noted fresh blood in the vaginal vault, no clots seen. Limited visualization secondary to bleeding. On digital examination, I do not palpate any mass lesions within the vaginal canal or cervix. - Integumentary Integumentary: Absent: calor, cellulitis - Neurologic Neurologic: Present: CNII-XII intact - Musculoskeletal Musculoskeletal: Present: gait normal, strength equal bilaterally - Psychiatric Psychiatric: Present: appropriate affect - Labs CBC & Chem 7: 01/03/22 06:57 01/03/22 06:57 Labs: Abnormal Lab Results - Last 24 Hours (Table) 01/02/22 01/02/22 01/02/22 Range/Units 12:48 16:06 22:36 RBC (4.10-5.20) X 10*6/uL Hgb (12.0-15.0) g/dL Hct (37.2-46.3) % MCV (80.0-97.0) fL MCH (27.0-32.0) pg MCHC (32.0-37.0) g/dL RDW (11.5-14.5) % Lymphocytes # (0.90-5.00) X 10*3/uL Eosinophils # (0.04-0.35) X 10*3/uL Est GFR (CKD-EPI)NonAf (60.0-200.0) POC Glucose (mg/dL) 120 H (70-110) mg/dL Urine Appearance Cloudy H (Clear) Urine Protein 2+ H (Negative) Urine Blood Large H (Negative) Ur Leukocyte Esterase Moderate H (Negative) Urine RBC >182 H (0-5) /hpf Urine WBC 153 H (0-5) /hpf Urine WBC Clumps Occasional H (None) /hpf Urine Yeast (Budding) Moderate H (None) /hpf Crossmatch See Detail 01/03/22 01/03/22 01/03/22 Range/Units 06:57 06:57 07:04 RBC 3.05 L (4.10-5.20) X 10*6/uL Hgb 7.3 L (12.0-15.0) g/dL Hct 24.0 L (37.2-46.3) % MCV 78.7 L (80.0-97.0) fL MCH 23.9 L (27.0-32.0) pg MCHC 30.4 L (32.0-37.0) g/dL RDW 17.9 H (11.5-14.5) % Lymphocytes # 0.40 L (0.90-5.00) X 10*3/uL Eosinophils # 0.50 H (0.04-0.35) X 10*3/uL Est GFR (CKD-EPI)NonAf 57.4 L (60.0-200.0) POC Glucose (mg/dL) 112 H (70-110) mg/dL Urine Appearance (Clear) Urine Protein (Negative) Urine Blood (Negative) Ur Leukocyte Esterase (Negative) Urine RBC (0-5) /hpf Urine WBC (0-5) /hpf Urine WBC Clumps (None) /hpf Urine Yeast (Budding) (None) /hpf Crossmatch 01/03/22 Range/Units 11:14 RBC (4.10-5.20) X 10*6/uL Hgb (12.0-15.0) g/dL Hct (37.2-46.3) % MCV (80.0-97.0) fL MCH (27.0-32.0) pg MCHC (32.0-37.0) g/dL RDW (11.5-14.5) % Lymphocytes # (0.90-5.00) X 10*3/uL Eosinophils # (0.04-0.35) X 10*3/uL Est GFR (CKD-EPI)NonAf (60.0-200.0) POC Glucose (mg/dL) 167 H (70-110) mg/dL Urine Appearance (Clear) Urine Protein (Negative) Urine Blood (Negative) Ur Leukocyte Esterase (Negative) Urine RBC (0-5) /hpf Urine WBC (0-5) /hpf Urine WBC Clumps (None) /hpf Urine Yeast (Budding) (None) /hpf Crossmatch Assessment and Plan Assessment: The patient is a 61-year-old female with a medical history of multiple prior CVAs with some residual deficits. She presents with vaginal bleeding secondary to a moderately differentiated endometrioid adenocarcinoma which appears clinically localized to the uterus (possible stage I). Secondary to her history of multiple strokes, she was not felt to be a good surgical candidate. The patient was subsequently started on definitive external radiotherapy. Her most recent treatment was December 30, and she has finished 30 Gy of treatment thus far. Initially, the patient's bleeding completely stopped after just a few radiation treatments. However, she has now had significant recurrence of the bleeding. 1. Vaginal bleeding: Uterine cancer is still the most likely etiology. I would recommend continuing to hold her blood thinners at this time. The patient has already received a dose of radiation that for most people is adequate to stop the bleeding. However, she continues to have moderately heavy bleeding at this time. We will resume radiotherapy today, and plan for similar treatment tomorrow. Continue to trend hemoglobin and transfuse as needed. If the patient's bleeding does not improve, she may require transfer to [facility] in the next couple days where she has previously been evaluated by [facility]. Time with Patient: Less than 30
[2022-01-03 16:42] LABS: Glucose,Whole Blood 253 mg/dL (70-110)
[2022-01-03] MEDS: INSULIN ASPART (NovoLOG) 100 UNIT/ML VIAL SQ SCH ×2 (17:47→20:55)
--- NOTE | 2022-01-03 18:07 | P.CNNES ---
History of Present Illness Consult date: 01/03/22 Requesting physician: Tiffanie Casillas Reason for Consult: recent tia on plavix and bleeding History of Present Illness: Patient is a 61-year-old female well known to me from recent admission to the hospital on 12/08/2021, when she had presented with an acute stroke, discharged on Plavix came to the hospital by ambulance yesterday at 12:27 PM with a syncopal spell and bleed. According to the EMS flow sheet, when they arrived, found patient on the floor of the doctor's office. Patient was sitting in the chair and felt faint. Patient slipped to the floor off the chair. Patient never lost consciousness. Patient apparently was at the doctor's office for a checkup for her vaginal bleeding and was placed on Plavix which was discontinued due to the bleeding. Patient has issues with clotting factors and has been on and off blood thinners. Patient's blood pressure at the scene was 132/88 pulse is 78 respirations 16 saturation 99%. Patient's blood test shows normal WBC, hemoglobin 7.5, platelets 154. PT/PTT normal, sodium 138 potassium 3.4, BUN 20 creatinine 1.19. Patient was mildly dehydrated. Hepatic panel, troponin are normal. UA shows large amount of blood. Moderate leukocyte esterase and 153 WBCs. Occasional WBC clumps. Chest x-ray showed no acute process. EKG with sinus rhythm. Possible left atrial enlargement. Patient apparently had an ischemic stroke in 2013 after which she had some residual speech deficit. She had a second stroke in August 2021 for which she was admitted to [facility]. Her symptoms consisted of facial droop, confusion, did not know where she was at. Patient was placed on aspirin and Plavix at that time. She had no new residual deficits from the second stroke. Patient subsequently developed genitourinary bleeding which could not stop. She was admitted in [facility] from mid October to November and was diagnosed with uterine cancer stage II. Patient's antiplatelet medications were discontinued and patient ended up with a third stroke on 12/08/2021. Patient was discharged on Plavix. She denies any new neurological symptoms at this time. Patient says that she had come to visit in [facility], and she fell down, had a bowel movement. She was brought to the hospital. No strokelike symptoms noted. Denies any headache, or any visual symptoms. Her speech is at baseline. Review of Systems Positive for bleed, residual speech difficulty, no chest pain, abdominal pain nausea vomiting diarrhea. No visual problems. No vertigo. No rash. No fever or chills. No chest pain, no cough. Patient does have anemia. All other uses and reviewed and unremarkable. Past Medical History Past Medical History: Cancer, Diabetes Mellitus, Hypertension Additional Past Medical History / Comment(s): PER PATIENT'S DTR- CVA AROUND 09/2021 AND WENT TO [facility], SPEECH APPEARS SLIGHTLY SLURRED, uterine ca Patient is undergoing radiation M-F at [facility] with about a week to go; will undergo more radiation later. History of Any Multi-Drug Resistant Organisms: None Reported Past Surgical History: No Surgical Hx Reported Additional Past Surgical History / Comment(s): D&C, cardiac loop recorder implanted last month Past Anesthesia/Blood Transfusion Reactions: No Reported Reaction Past Psychological History: No Psychological Hx Reported Smoking Status: Current every day smoker Past Alcohol Use History: None Reported Past Drug Use History: None Reported - Past Family History family Family Medical History: No Reported History Medications and Allergies Home Medications Medication Instructions Recorded Confirmed Type Atorvastatin Calcium [Lipitor] 40 mg PO HS 11/08/21 01/02/22 History Insulin Glargine [Lantus Vial] 15 units SQ HS 11/08/21 01/02/22 History Losartan [Cozaar] 50 mg PO BID 11/08/21 01/02/22 History Pantoprazole Sodium [Protonix] 40 mg PO DAILY 11/08/21 01/02/22 History Ferrous Sulfate [Iron (65 MG 325 mg PO DAILY #30 tab 11/09/21 01/02/22 Rx Elemental)] Megestrol [Megace] 800 mg PO DAILY 12/08/21 01/02/22 History Metoprolol Succinate (ER) [Toprol 50 mg PO DAILY 12/08/21 01/02/22 History XL] Chlorthalidone 25 mg PO DAILY #30 tab 12/11/21 01/02/22 Rx Clopidogrel [Plavix] 75 mg PO DAILY #30 tab 12/11/21 01/02/22 Rx Allergies Allergy/AdvReac Type Severity Reaction Status Date / Time No Known Allergies Allergy Verified 01/02/22 15:03 Physical Examination - Vital Signs Vital Signs: Vital Signs Temp Pulse Pulse Pulse Resp BP BP 01/03/22 11:49 98.5 F 76 15 149/92 01/03/22 05:03 97.9 F 87 18 134/85 01/02/22 22:15 98.7 F 79 18 147/85 01/02/22 21:26 98.8 F 80 16 140/71 01/02/22 20:32 76 16 131/64 01/02/22 20:00 79 18 01/02/22 19:14 74 16 131/74 01/02/22 18:44 98.2 F 78 20 128/67 01/02/22 18:34 97.9 F 101 H 20 136/98 01/02/22 15:11 73 20 147/95 01/02/22 12:30 97.9 F 78 20 142/90 Pulse Ox 01/03/22 11:49 100 01/03/22 05:03 100 01/02/22 22:15 99 01/02/22 21:26 100 01/02/22 20:32 100 01/02/22 20:00 01/02/22 19:14 100 01/02/22 18:44 100 01/02/22 18:34 100 01/02/22 15:11 100 01/02/22 12:30 100 Intake and Output 01/02/22 01/03/22 01/03/22 22:59 06:59 14:59 Intake Total 310 400 Output Total 0 Balance 310 400 Intake: Oral 400 Blood Product 310 Rc As-1 Unit 310 [id number] Output: Stool 0 Other: Voiding Method Toilet # Voids 0 2 # Bowel Movements 1 Patient is a middle aged Afro-Ivorian female, in no acute distress. Patient is alert awake oriented to time place and person. Speech is mildly dysarthric and language functions are normal. Attention, concentration and fund of knowledge is adequate. Patient can name and repeat very well. On cranial examination, pupils are round and reacting to light, visual steve are full on confrontation, extraocular muscles are intact with no nystagmus. Face is symmetric, tongue protrudes to the midline. Palatal elevation and sensation normal, hearing and shoulder shrug normal, facial sensation normal. Shoulder shrug normal. On muscle strength testing, there is no pronator drift and the strength is normal in arms and legs distally and proximally. Deep tendon reflexes are symmetric and plantars downgoing. Sensory to touch is equal with no neglect. Cerebellar function showed no ataxia for [id number] testing. No dysdiadoch okinesia. Tone and bulk of muscles normal. Gait normal. On general examination, there is no carotid bruit or murmur, S1-S2 audible. Abdomen is soft nontender. No organomegaly, bowel sounds present. Chest is clear. Peripheral pulses are present. No edema. Results - Laboratory Findings CBC and BMP: 01/03/22 06:57 01/03/22 06:57 Abnormal Lab Findings: Abnormal Labs 01/02/22 01/02/22 01/02/22 12:48 12:48 12:48 RBC 2.96 L Hgb 7.5 L Hct 24.1 L MCV MCH MCHC RDW 19.5 H Lymphocytes # 0.4 L Eosinophils # Potassium 3.4 L Chloride 108 H Carbon Dioxide 21 L BUN 20 H Creatinine 1.19 H Est GFR (CKD-EPI)NonAf Glucose 110 H POC Glucose (mg/dL) Urine Appearance Cloudy H Urine Protein 2+ H Urine Blood Large H Ur Leukocyte Esterase Moderate H Urine RBC >182 H Urine WBC 153 H Urine WBC Clumps Occasional H Urine Yeast (Budding) Moderate H Crossmatch 01/02/22 01/02/22 01/03/22 16:06 22:36 06:57 RBC 3.05 L Hgb 7.3 L Hct 24.0 L MCV 78.7 L MCH 23.9 L MCHC 30.4 L RDW 17.9 H Lymphocytes # 0.40 L Eosinophils # 0.50 H Potassium Chloride Carbon Dioxide BUN Creatinine Est GFR (CKD-EPI)NonAf Glucose POC Glucose (mg/dL) 120 H Urine Appearance Urine Protein Urine Blood Ur Leukocyte Esterase Urine RBC Urine WBC Urine WBC Clumps Urine Yeast (Budding) Crossmatch See Detail 01/03/22 01/03/22 01/03/22 06:57 07:04 11:14 RBC Hgb Hct MCV MCH MCHC RDW Lymphocytes # Eosinophils # Potassium Chloride Carbon Dioxide BUN Creatinine Est GFR (CKD-EPI)NonAf 57.4 L Glucose POC Glucose (mg/dL) 112 H 167 H Urine Appearance Urine Protein Urine Blood Ur Leukocyte Esterase Urine RBC Urine WBC Urine WBC Clumps Urine Yeast (Budding) Crossmatch Assessment and Plan Assessment: * History of recurrent strokes 3 in the past. Patient was placed on Plavix after her last stroke, now came with bleed. * Uterine cancer, undergoing radiation therapy. * Hypertension * Diabetes * Hyperlipidemia * Tobacco use * Previous history of strokes. * Status post loop recorder placement last admission in early December 2021. * Asymptomatic saccular cerebral aneurysm, 3.5 mm projecting inferiorly and posteriorly from the supraclinoid right ICA. Plan: * Patient's Plavix has been discontinued. She cannot tolerate any antiplatelet medication because of bleed. She has previously bled from aspirin as well. * Patient continues to be high risk for recurrent strokes. * Patient undergoing radiation therapy for uterine cancer. * Consider resuming at least aspirin 81 mg daily, when medically possible. * Continue Lipitor 40 mg daily. * Patient needs to follow-up with neuro intervention for management of her saccular aneurysm. * DVT prophylaxis: Patient on SCDs. * Neurologically clear. May follow up with neurologist as outpatient. Thank you for the consult.
[2022-01-03 18:37] LABS: % Iron Saturation 10.25 (12.00-45.00)
[2022-01-03 20:50] LABS: Glucose,Whole Blood 142 mg/dL (70-110)
[2022-01-03] MEDS: ATORVASTATIN 40 MG TAB PO SCH (20:55)
[2022-01-03] MEDS: INSULIN DETEMIR (LEVEMIR) 100 UNIT/ML SYR SQ SCH (20:55)
[2022-01-04] MEDS: SODIUM CHLORIDE 0.9% 1,000 ML IV SCH (05:55)
[2022-01-04 06:28] LABS: Anisocytosis Slight; HCT 25.9 % (34.0-46.0); HGB 8.2 gm/dL (11.4-16.0); Hypochromasia Marked; MCH 26.2 pg (25.0-35.0); MCHC 31.6 g/dL (31.0-37.0); MCV 82.9 fL (80.0-100.0); Mean Platelet Volume 7.6; Microcytosis Slight; Platelet Count 203 k/uL (150-450); Poikilocytosis Moderate; RBC 3.12 m/uL (3.80-5.40); RDW 18.6 % (11.5-15.5); WBC 5.9 k/uL (3.8-10.6)
[2022-01-04 06:39] LABS: African American GFR (CKD) 72 (>60 ml/min/1.73 sqM); Anion Gap 9 mmol/L; Blood Urea Nitrogen 14 mg/dL (7-17); Calcium 8.6 mg/dL (8.4-10.2); Carbon Dioxide 19 mmol/L (22-30); Chloride 111 mmol/L (98-107); Glucose 130 mg/dL (74-99); Non-African American GFR(CKD) 63 (>60 ml/min/1.73 sqM); Potassium 3.5 mmol/L (3.5-5.1); Sodium 139 mmol/L (137-145)
[2022-01-04 07:02] LABS: Glucose,Whole Blood 160 mg/dL (70-110)
[2022-01-04] MEDS: CHLORTHALIDONE 25 MG TAB PO SCH (08:10)
[2022-01-04] MEDS: PANTOPRAZOLE 40 MG TABLET PO SCH (08:10)
[2022-01-04] MEDS: MEGESTROL 400 MG/10 ML CUP PO SCH (08:10)
[2022-01-04] MEDS: FERROUS SULFATE 325 MG TAB PO SCH (08:10)
[2022-01-04] MEDS: METOPROLOL SUCCINATE (ER) 50 MG TAB.ER.24H PO SCH (08:10)
[2022-01-04] MEDS: LOSARTAN 50 MG TAB PO SCH (08:10)
[2022-01-04] MEDS: INSULIN ASPART (NovoLOG) 100 UNIT/ML VIAL SQ SCH ×2 (08:10→13:37)
[2022-01-04 11:15] LABS: Glucose,Whole Blood 253 mg/dL (70-110)
[2022-01-04 13:04] VITALS: BP 137/78; PULSE 72; RESP 14; TEMP 98.6
--- NOTE | 2022-01-04 16:09 | P.PN ---
Subjective Progress Note Date: 01/04/22 Principal diagnosis: vaginal hemorrhage, endometrial carcinoma In f/u today pt anxious to go home, she states significant reduction in vaginal bleeding, she did have radiation. Objective - Vital Signs Vital signs: Vital Signs Temp 98.6 F 01/04/22 13:00 Pulse 72 01/04/22 13:00 Resp 14 01/04/22 13:00 BP 137/78 01/04/22 13:00 Pulse Ox 100 01/04/22 13:00 FiO2 Intake & Output 01/03/22 01/04/22 01/04/22 18:59 06:59 18:59 Intake Total 1210 Balance 1210 Intake: Intake, IV Titration 900 Amount Sodium Chloride 0.9% 1, 900 000 ml @ 75 mls/hr IV . [id number] DEANDRA Rx#:[id number] Blood Product 310 Rc As-1 Unit 310 [id number] Other: Voiding Method Toilet Toilet Toilet # Voids 3 3 - Constitutional General appearance: Present: average body habitus, cooperative, no acute distress - EENT Eyes: Present: anicteric sclerae, EOMI ENT: Present: hearing grossly normal - Respiratory Details: resp even and unlabored - Peripheral edema leg Peripheral Edema: bilateral: None - Neurologic Neurologic: Present: focal deficits - Psychiatric Psychiatric: Present: A&O x's 3, appropriate affect, intact judgment & insight - Labs CBC & Chem 7: 01/04/22 05:31 01/04/22 05:31 Labs: Abnormal Lab Results - Last 24 Hours (Table) 01/02/22 01/03/22 01/03/22 Range/Units 16:06 06:57 16:41 RBC (3.80-5.40) m/uL Hgb (11.4-16.0) gm/dL Hct (34.0-46.0) % RDW (11.5-15.5) % Chloride (98-107) mmol/L Carbon Dioxide (22-30) mmol/L Glucose (74-99) mg/dL POC Glucose (mg/dL) 253 H (70-110) mg/dL Iron 31 L (50-170) ug/dL % Saturation 10.25 L (12.00-45.00) Crossmatch See Detail 01/03/22 01/04/22 01/04/22 Range/Units 20:48 05:31 05:31 RBC 3.12 L (3.80-5.40) m/uL Hgb 8.2 L (11.4-16.0) gm/dL Hct 25.9 L (34.0-46.0) % RDW 18.6 H (11.5-15.5) % Chloride 111 H (98-107) mmol/L Carbon Dioxide 19 L (22-30) mmol/L Glucose 130 H (74-99) mg/dL POC Glucose (mg/dL) 142 H (70-110) mg/dL Iron (50-170) ug/dL % Saturation (12.00-45.00) Crossmatch 01/04/22 01/04/22 Range/Units 07:01 11:13 RBC (3.80-5.40) m/uL Hgb (11.4-16.0) gm/dL Hct (34.0-46.0) % RDW (11.5-15.5) % Chloride (98-107) mmol/L Carbon Dioxide (22-30) mmol/L Glucose (74-99) mg/dL POC Glucose (mg/dL) 160 H 253 H (70-110) mg/dL Iron (50-170) ug/dL % Saturation (12.00-45.00) Crossmatch Assessment and Plan (1) Dysfunctional uterine bleeding Current Visit: Yes Status: Acute Priority: High Code(s): N93.8 - OTHER SPECIFIED ABNORMAL UTERINE AND VAGINAL BLEEDING SNOMED Code(s): 06309626902816 (2) Endometrial cancer Current Visit: Yes Status: Acute Priority: High Code(s): C54.1 - MALIGNANT NEOPLASM OF ENDOMETRIUM SNOMED Code(s): 984257326 (3) TIA (transient ischemic attack) Current Visit: No Status: Chronic Priority: Medium Code(s): G45.9 - TRANSIENT CEREBRAL ISCHEMIC ATTACK, UNSPECIFIED SNOMED Code(s): 027837300 Plan: Pt reporting less vaginal bleeding today. She is to f/u with [facility] [employer] [facility] for surgery soon. Follow up with Rad Onc as scheduled. Needs to see Neuro for f/u on CVA/TIA Hx.
--- NOTE | 2022-01-05 10:52 | P.DS ---
Providers Date of admission: 01/02/22 15:43 Expected date of discharge: 01/04/22 Attending physician: Tiffanie Casillas Consults: 01/02/22 15:43 Consult Physician Routine Consulting Provider: Minna Boykin Consult Reason/Comments: Dysfunctional uterine bleeding Do you want consulting provider notified?: Already Contacted 01/02/22 15:49 Consult Physician Urgent Consulting Provider: Lorenzo Padilla Consult Reason/Comments: Oncological care Do you want consulting provider notified?: Yes 01/02/22 16:27 Consult Physician Routine Consulting Provider: Peggy Brennan Consult Reason/Comments: recent tia on plavix and bleeding Do you want consulting provider notified?: Yes 01/03/22 12:46 Consult Physician Urgent Consulting Provider: Palomo Fleming Consult Reason/Comments: endometrial ca/ bleeding/ recent tia on plavix Do you want consulting provider notified?: Yes Primary care physician: Marie Dubon Hospital Course: Final diagnosis Acute lower genitourinary bleeding with acute blood loss anemia, symptomatic Presyncope, possibly secondary to above Uterine cancer Diabetes mellitus Hypertension GI prophylaxis DVT prophylaxis Full code Discharge disposition Patient is being discharged in a stable condition with guarded prognosis to home. Patient will follow-up with Dr. Marie Dubon in the outpatient setting upon discharge. Patient is to follow-up tomorrow at [facility] for radiation treatment with Dr. Lorenzo Padilla at 2:45 PM as scheduled. Patient needs to follow-up with gynecology oncology Dr. Felton out of [facility]. Recommend repeat labs in one day to monitor CBC. Total time taken is greater than 35 minutes. Hospital course This is a 61-year-old female who was recently admitted with vaginal bleeding and recently diagnosed with uterine cancer and has been following with Dr. Padilla radiation oncology in the outpatient setting. Patient also seen by gynecology and recommending to continue with Dr. rowan out of [facility] for gynecology oncology. This was discussed with daughter in detail and they are arranging a follow-up appointment. Patient was noted to have lower hemoglobin and transfuse to total units during hospitalization and reports to having minimal vaginal bleeding noted and extremely anxious and requesting to go home. Patient to receive a treatment of radiation therapy and follow-up with another treatment tomorrow at 2:45 PM here in [facility]. This was also discussed with daughter at length as well. Recommend repeat labs in one day to monitor hemoglobin closely and up her prescription was provided. Currently no reports of chest pain, shortness of breath, or palpitations. Patient is afebrile. No reports of nausea or vomiting and patient is tolerating diet. Patient will be discharged home today. Guarded prognosis. On exam vital signs are stable. Cardio S1, S2 are muffled. Respiratory system shows diminished breath sounds at the bases with no wheezing or rhonchi noted. Abdomen is soft and obese, and nontender. Nervous system shows no focal deficits. Please refer to medication reconciliation sheet for a list of medications. The impression and plan of care has been dictated by Mikayla Bain, Nurse Practitioner as directed. Dr. Vinny MD I have performed a history and examination and MDM of this patient, discussed the same with the dictator, and agree with the dictator's assessment and plan as written ,documented as a scribe. Based on total visit time, I have performed more than 50% of the visit. Patient Condition at Discharge: Stable Plan - Discharge Summary New Discharge Prescriptions: Continue Insulin Glargine [Lantus Vial] 15 units SQ HS Losartan [Cozaar] 50 mg PO BID Pantoprazole Sodium [Protonix] 40 mg PO DAILY Ferrous Sulfate [Iron (65 MG Elemental)] 325 mg PO DAILY #30 tab Atorvastatin Calcium [Lipitor] 40 mg PO HS Metoprolol Succinate (ER) [Toprol XL] 50 mg PO DAILY Megestrol [Megace] 800 mg PO DAILY Chlorthalidone 25 mg PO DAILY #30 tab Discontinued Clopidogrel [Plavix] 75 mg PO DAILY #30 tab Discharge Medication List Atorvastatin Calcium [Lipitor] 40 mg PO HS 11/08/21 [History] Insulin Glargine [Lantus Vial] 15 units SQ HS 11/08/21 [History] Losartan [Cozaar] 50 mg PO BID 11/08/21 [History] Pantoprazole Sodium [Protonix] 40 mg PO DAILY 11/08/21 [History] Ferrous Sulfate [Iron (65 MG Elemental)] 325 mg PO DAILY #30 tab 11/09/21 [Rx] Megestrol [Megace] 800 mg PO DAILY 12/08/21 [History] Metoprolol Succinate (ER) [Toprol XL] 50 mg PO DAILY 12/08/21 [History] Chlorthalidone 25 mg PO DAILY #30 tab 12/11/21 [Rx] Follow up Appointment(s)/Referral(s): Marie Dubon MD [Primary Care Provider] - 1-2 days Kyrie Felton MD [STAFF PHYSICIAN] - 3 Days Lorenzo Padilla MD [STAFF PHYSICIAN] - 1-2 Days (Patient has 2:45 appointment for radiation treatment here at [facility]) Ambulatory/Diagnostic Orders: Complete Blood Count w/diff [LAB.AMB] Time Frame: 1 Day, Location: None Selected Patient Instructions/Handouts: Abnormal (Dysfunctional) Uterine Bleeding (DC), Syncope (DC), Anemia (DC) Activity/Diet/Wound Care/Special Instructions: Activity Limited until follow-up Follow-up with primary care provider on discharge Follow-up with radiation treatment tomorrow at 2:45 PM here at [facility] Follow-up with Dr. Padilla radiation treatment [facility] Recommend repeat CBC tomorrow while here at the hospital to monitor hemoglobin Continue holding all blood thinning medications including aspirin and Plavix Continue current diet Discharge Disposition: HOME SELF-CARE
== END 2022-01-04 18:41 | disposition home or self-care (01) ==
LOC: EC 12:27 → INTOOBSV 15:43 → 4SSUR 15:43 → 5NMEDONC 17:53 → UNDODISIN 01-04 18:41
PROVIDERS: ADMIT Hospitalist; ATTEND Hospitalist
PROC: 30233N1 Transfusion of Nonautologous Red Blood Cells into Peripheral Vein, Percutaneous Approach (ICD-10-PCS; principal; 2022-01-02)
DX: D62 Acute posthemorrhagic anemia (principal); C54.1 Malignant neoplasm of endometrium; E86.0 Dehydration; E86.1 Hypovolemia; N93.8 Other specified abnormal uterine and vaginal bleeding; I10 Essential (primary) hypertension; E11.9 Type 2 diabetes mellitus without complications; I69.328 Other speech and language deficits following cerebral infarction; I67.1 Cerebral aneurysm, nonruptured; E66.9 Obesity, unspecified; Z68.33 Body mass index [BMI] 33.0-33.9, adult; R55 Syncope and collapse; F17.200 Nicotine dependence, unspecified, uncomplicated; E78.5 Hyperlipidemia, unspecified; Z79.02 Long term (current) use of antithrombotics/antiplatelets; Z79.4 Long term (current) use of insulin; Z79.899 Other long term (current) drug therapy; W19.XXXA Unspecified fall, initial encounter
CPT/HCPCS: 36430 ×2; 96361 ×3; 96360; 99285; 36415; 86900; 86901; 82747; 80053; 80048 ×2; 82607; 82728; 83540; 83550; 83735; 84484; 85025 ×2; 85027; 85610; 85730; 86850; 86920; 81001; 71046; 77387 ×2; 77412 ×2; G0378 ×4; P9016 ×2; S0179 ×2; 77280; 77307; 77334

== ENCOUNTER → 2022-01-10 | Outpatient (CLI) | payer OTHER ==
[2022-01-10 18:17] LABS: Basophils # (A) 0.04 X 10*3/uL (0.00-0.10); Basophils % (A) 0.6 %; Eosinophils # (A) 0.61 X 10*3/uL (0.04-0.35); Eosinophils % (A) 9.5 %; HCT 27.5 % (37.2-46.3); Immature Grans, Automated 0.3 %; Lymphocytes # (A) 0.44 X 10*3/uL (0.90-5.00); Lymphocytes % (A) 6.8 %; MCH 23.8 pg (27.0-32.0); MCHC 29.1 g/dL (32.0-37.0); MCV 81.8 fL (80.0-97.0); Mean Platelet Volume 9.9 fL (9.5-12.2); Monocytes # (A) 0.41 X 10*3/uL (0.20-1.00); Monocytes % (A) 6.4 %; NRBC Per 100 WBC 0 /100 WBCS (0.0-0.0); Neutrophils # (A) 4.91 X 10*3/uL (1.80-7.70); Neutrophils % (A) 76.4 %; Platelet Count 284 X 10*3/uL (140-440); RBC 3.36 X 10*6/uL (4.10-5.20); RDW 18.1 % (11.5-14.5); WBC 6.43 X 10*3/uL (4.50-10.00)
== END | disposition home or self-care (01) ==
LOC: LABWHC1 11:31
PROVIDERS: ATTEND Radiology Radiation Oncology
DX: Z51.0 Encounter for antineoplastic radiation therapy (principal); C54.1 Malignant neoplasm of endometrium
CPT/HCPCS: 36415; 85025

== ENCOUNTER → 2022-02-01 | Outpatient (CLI) | payer OTHER ==
--- NOTE | 2022-02-02 05:21 | MR ---
EXAMINATION TYPE: MR pelvis wo/w con DATE OF EXAM: 02/01/2022 COMPARISON: None HISTORY: Pelvic pain, uterine cancer. CONTRAST: Standard multiplanar, multisequence MRI departmental protocol images were obtained without contrast a nd with 9 mL intravenous Gadavist gadolinium contrast. There is a 3.6 x 1.06 cm cylindrical type implant in the cervical canal. The uterus has normal size. Uterus measures 10.2 x 5.8 cm . No free fluid in the pelvis. No evidence of pelvic lymphadenopathy. U rinary bladder distends smoothly. There is some heterogeneity and thickening of the endometrium on th e left side of the uterine fundus consistent with endometrial tumor this measures 2.5 cm.. This encro aches on the left side uterine cornu. The sacral segments appear intact. No presacral edema. There is 10 mm cervical cyst on the left side. Contrast images show no pathologic enhancement. IMPRESSION: There is 2.5 cm mass in the left uterine cornu which is encroaching on the endometrial cavity and bes t seen on the T2 axial image 28. This is consistent with a endometrial tumor. Follow-up recommended.
== END | disposition home or self-care (01) ==
LOC: RADMRIMAIN 14:30
PROVIDERS: ATTEND Radiology Radiation Oncology
DX: C54.1 Malignant neoplasm of endometrium (principal)
CPT/HCPCS: 72197; A9585